=== PATIENT | male | born 1950 | race Caucasian/White ===

== ENCOUNTER 2022-03-17 13:17 | Outpatient (CLI) | payer MEDICARE, BC, SELFPAY ==
[2022-03-17 14:15] LABS: Anion Gap 10 mmol/L (8-16); Blood Urea Nitrogen 23 mg/dL (9-20); Carbon Dioxide 27 mmol/L (22-30); Chloride 102 mmol/L (98-107); Estimated Glomerular Filt Rate > 60; Glucose 142 mg/dL (65-110); Potassium 4.2 mmol/L (3.4-5.0); Sodium 139 mmol/L (137-145)
== END 2022-03-17 13:18 | disposition home or self-care (01) ==
LOC: ANHSURGERY 13:22
PROVIDERS: Anesthesiology; PCP Internal Medicine; Visit Provider Urology
DX: I10 Essential (primary) hypertension (principal); Z01.818 Encounter for other preprocedural examination
CPT/HCPCS: 36415; 80048

== ENCOUNTER 2022-03-24 00:35 | Day surgery (SDC) | payer MEDICARE, BC, SELFPAY ==
--- NOTE | 2022-03-16 15:19 | PC.NURSE ---
Report to the Outpatient Waiting Room, entrance under the green pavilion located off [facility], at time _0630 on date _03/24/22 . OR Time: __0830 . Time changes happen often and if your time is changed the preop area will call you the afternoon before. - You and your visitor will be asked to self-screen and do not enter if you have any COVID symptoms. - Only one visitor and NO children visitors are allowed at this time. - The patient visitor is requested to leave or wait in car when not with patient due to restrictions. - A mask is required within the hospital. Patients may have clear liquids (water, carbonated beverages, clear teas, apple juice) until 3 hours prior to surgery with a maximum of 20 ounces. - No food from midnight until time of surgery - Infants may have breast milk until 4 hours before surgery, formula 6 hours prior to surgery. - Children will be allowed to drink immediately following surgery. If applicable, please bring a bottle or sippy cup to assist with drinking. Juice, water, soda, and popsicles are readily available. For infants on formula, please bring formula the day of surgery. Pacifiers are allowed. Take the following medications with a SIP of water the morning of surgery: _DILTIAZEM,NADOLOL, Medications to discontinue per physician __CATRACHO SOTO 2 DAYS PRE OP ___PT STATES ALL VITAMINS AND SUPPLEMENTS 7 DAYS PRE OP PER DR PHOEN[place] Date to take last dose__03/21/22__CATRACHO AND ALL VITAMINS/SUPP 03/16/22 Please no make-up, nail bengali, hairspray, perfume, deodorant, or body powder the day of surgery. No jewelry (including any body piercings) or valuables the day of surgery, leave them at home. Please take a shower or bath the night before, or the morning of, surgery with an antibacterial soap. Wear comfortable, loose fitting clothing. Children are encouraged to wear pajamas. - Jewelry must be removed prior to entering the operating room. Rings and piercings that are not removed may be cut off. - The hospital will not accept responsibility for valuables. - Please leave all valuables, including medications, at home the day of surgery. If you are going home after surgery, a licensed [place] driver must drive you home. - NO public transportation without another adult. - We recommend that an adult stay with you for 24 hours following discharge. - We also recommend that you do not drive, make important decision, drink alcoholic beverages, or take any drugs that were not prescribed by your health care provider for at least 24 hours after your discharge time. For Pediatric surgeries, we recommend two adults accompany the child home (only one inside the building at this time). Follow any additional instructions given to you from your surgeon. If you or anyone in your household have experienced Covid symptoms in the past week, please notify your surgeon or the nurse liaison at the phone number below for possible testing. Telephone instructions given to _PATIENT and asked if any additional questions and then verbalized understanding. Patient advised to call surgeon office or pre surgery nurse liaison [phone] if any additional questions.
[2022-03-16 15:42] VITALS: BMI 34.8
[2022-03-24] VITALS (9 sets, daily range): BP systolic 122–169; BP diastolic 73–115; PULSE 56–81; RESP 12–18; TEMP 36.8–38; O2SAT 95–99
[2022-03-24] MEDS: LACTATED RINGERS 1,000 ML 30 ML IV CONT ×2 (07:15→09:56)
--- NOTE | 2022-03-24 07:22 | WPDHPUPDATE1 ---
History and Physical Update Update Date/Time: 03/24/22 07:22 History and Physical has been reviewed, including an updated exam of the patient. There are NO changes in the patient's condition. Risks, benefits, and alternatives have been discussed and questions answered. Patient agrees to proceed with procedure. Proceed with right hydrocele and orchiopexy
--- NOTE | 2022-03-24 07:44 | WPDANESEPPF ---
Anes - Initial Pre Proc Eval Procedure: Operation Date: 03/24/22 08:30 Proposed Procedures p Right Hydrocelectomy with Orchiopexy - John Camacho MD Date/Time: 03/24/22 07:44 Surgeon: John Camacho MD Pre Op Diagnosis: Right Hydrocele Patient Data Age: 71 Gender: M Height: 1.8 m Weight: 115.5 kg Last Vital Signs Temp 36.8 C 03/24/22 07:30 Pulse 76 03/24/22 07:30 Resp 18 03/24/22 07:30 BP 169/115 H 03/24/22 07:30 Pulse Ox 98 03/24/22 07:30 O2 Del Method Room Air 03/24/22 07:30 Allergies Allergy/AdvReac Type Severity Reaction Status Date / Time lisinopril Allergy Intermediate increased Verified 03/24/22 07:25 heart rate Penicillins Allergy Mild Hives Verified 03/24/22 07:25 telmisartan Allergy Unknown heart Verified 03/24/22 07:25 flutter frequency Home Medications Medication Instructions Recorded Confirmed Type rivaroxaban 20 mg tablet (Xarelto) 20 mg PO DAILY 08/01/19 03/24/22 History triamterene 37.5 1 cap PO DAILY #90 caps 09/19/21 03/16/22 Rx mg-hydrochlorothiazide 25 mg capsule nadolol 80 mg tablet (Corgard) 80 mg PO DAILY #90 tabs 12/29/21 03/24/22 Rx valsartan 320 mg tablet 320 mg PO DAILY #90 tabs 02/10/22 03/16/22 Rx allopurinol 300 mg tablet 300 mg PO DAILY #90 tabs 02/11/22 03/16/22 Rx diltiazem HCl 300 mg 300 mg PO DAILY #90 caps 03/04/22 03/24/22 Rx capsule,extended release 24 hr glucosamine sulf dipot 1 cap PO EVERY OTHER DAY 03/16/22 03/16/22 History chlr,msm,chond 550 mg-C 30 mg-rayshawn 1 mg capsule (Glucosamine Chondroitin) multivitamin 1 tablet PO EVERY OTHER DAY 03/16/22 03/24/22 History Patient hx anesthesia problems: none Family hx anesthesia problems: other (mother slow to awaken) Results Review: All pre-operative results and documents have been reviewed as part of the pre-operative evaluation. [facility] Past Medical History Medical History Arthritis Essential (primary) hypertension Obesity Paroxysmal atrial fibrillation Pure hypercholesterolemia Family History Family History Sibling Hypertension Patient's sister is in good health Mother , pancreatic cancer Family history of malignant neoplasm of breast in first degree relative Family history of colonic diverticulitis Father Family history of congestive heart failure, Onset Age: 76 Patient's father is Social History Social History Smoking status: Never smoker Second hand tobacco smoke exposure: No Alcohol intake: current Living arrangements: alone Spiritual care concerns: No Anes - Eval Final PreProcedure Day of Procedure 03/24/22 07:44 Patient weight: obese Heart: regular rate and rhythm Lungs: clear to auscultation Airway: Mallampati scale class II Neurological: alert and oriented Last oral intake: >/= 8 hours ASA classification: III Emergent: no Anesthetic plan: proceed Anesthesia type and monitoring: general LMA and standard monitoring Results Review: All pre-operative results and documents have been reviewed as part of the pre-operative evaluation. Informed Consent: The patient's anesthetic plan and its attendant risks and benefits were discussed with the patient/family/POA. Questions were solicited and answers provided to the satisfaction of the patient/family/POA.
[2022-03-24] MEDS: ceFAZolin 2 GM/D5W 50 ML 2 GM/50 ML BAG IVPB (08:16)
[2022-03-24] MEDS: NEOMYCIN/POLYMYXIN/BACITRACIN OINTMENT 15 GM TUBE 1 APPLIC TOPICAL (09:44)
[2022-03-24] MEDS: LIDOCAINE HCL 1% PF 30 ML VIAL INFILTRATE (09:45)
--- NOTE | 2022-03-24 09:50 | W.PM.PROC2 ---
Procedure Note - Detailed Date of Procedure 03/24/22 Pre-op Diagnosis Right Hydrocele Post-op Diagnosis Same Procedure Performed Scrotal exploration with right hydrocelectomy, right orchiopexy Surgeon John Camacho MD Anesthesia General Description of Procedure Patient was taken to the operating room correctly identified. Once anesthesia was obtained was prepped and draped usual sterile fashion. Incision was made over the right hemiscrotum. The was carried down through the tunica layers. Patient has an extremely large hydrocele which was then brought out into the operative field. We opened the hydrocele. We evacuated 450 cc of brownish fluid. The hydrocele sac itself was extremely thick and fibrous in nature. We were able to dissect this down and excised the excess tissue. We then fulgurated oversewed the edges using 3-0 chromic in a running fashion. Quarter-inch Nelly drain was then placed in the right hemiscrotum through a separate stab incision and secured using 3-0 chromic. Testicle was placed in appropriate location an orchiopexy was performed by using 3-0 Ethibond and securing it on the medial, lateral, and inferior aspects. Tunica was closed using 3-0 chromic. Skin was closed using 3-0 chromic in a running fashion. We anesthetized the skin and the drain site using 1% lidocaine. All lap count needle count sponge counts were correct. Patient was taken recovery stable condition. He will remove the [place] drain and a couple days of there is minimal drainage. Follow-up in 3-4 weeks time. Estimated Blood Loss 25 Drains Yes Packing No Pathology Yes Complications No immediate complications Condition Stable Disposition PACU
== END 2022-03-24 12:05 | disposition home or self-care (01) ==
PROVIDERS: PCP Internal Medicine; Visit Provider Urology
PROC: (CPT 55040; principal; 2022-03-24 08:30)
DX: N43.3 Hydrocele, unspecified (principal); I10 Essential (primary) hypertension; I48.0 Paroxysmal atrial fibrillation; E78.00 Pure hypercholesterolemia, unspecified; E66.9 Obesity, unspecified; Z68.35 Body mass index [BMI] 35.0-35.9, adult; Z79.01 Long term (current) use of anticoagulants
CPT/HCPCS: 55040; 54640; 88302; A9270; J0690; J1100; J2405; J2704; J3010; J7120

== ENCOUNTER 2022-03-26 07:48 | Inpatient (IN) | payer MEDICARE, BC, SELFPAY ==
[2022-03-26] VITALS (38 sets, daily range): BP systolic 148–187; BP diastolic 83–119; PULSE 38–94; RESP 13–31; TEMP 36.5–36.9; O2SAT 92–99; BMI 36.1
--- NOTE | ~2022-03-26 | CT_ITS ---
EXAMINATION: CTA brain carotid DATE: 03/26/2022 09:28 INDICATION: Cerebrovascular accident. TECHNIQUE: Computed tomographic angiography (CTA) of the head was performed with 100 mL Omnipaque-350 intravenous contrast. CTA of the neck was performed with intravenous contrast. Automated exposure co ntrol and iterative reconstruction technique were employed. The dose-length product was 1287.18 mGy-c m. Maximum intensity projection and volume rendered 3D-reconstructions were created by the [employer] on a separate workstation. COMPARISON: Head CT 03/26/2022 FINDINGS: HEAD CTA: There is no intracranial hemorrhage, acute infarction, or abnormal intracranial mass lesion . The ventricles are normal in size. There is mucosal thickening in the paranasal sinuses. There is t hickening and sclerosis of the feliciano of many of the right-sided paranasal sinuses, consistent with ch ronic sinusitis. The mastoid air cells are normal. Left vertebral artery is dominant. There is no sig nificant stenosis of basilar artery or the posterior cerebral arteries. The posterior communicating a rteries are normal. There is no significant stenosis of the intracranial internal carotid artery or a nterior cerebral arteries. There is thrombus in a left M2 middle cerebral artery branch with severe s tenosis. Anterior communicating artery is normal. There is no aneurysm. NECK CTA: There are no pathologically enlarged lymph nodes. There is no significant stenosis of the v ertebral arteries. There is plaque in the proximal internal carotid arteries. There is 0% stenosis of the proximal right internal carotid artery relative to normal distal artery lumen diameter (NASCET c riteria). There is 0% stenosis of the proximal left internal carotid artery relative to normal distal artery lumen diameter. There is severe cervical spondylosis. IMPRESSION: 1. 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 No parenchymal findings of infarct. 2. 0% stenosis of the proximal internal carotid arteries relative to normal distal artery lumen diame ters (NASCET criteria). 3. Chronic sinusitis. Reviewed, dictated and finalized at location A. IMPRESSION: 1. 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 No parenchymal findings of infarct. 2. 0% stenosis of the proximal internal carotid arteries relative to normal dis jackie artery lumen diameters (NASCET criteria). 3. Chronic sinusitis.
--- NOTE | ~2022-03-26 | MR_ITS ---
EXAMINATION: MR brain/brain stem wo con DATE: 03/28/2022 14:49 INDICATION: thrombus TECHNIQUE: Magnetic resonance imaging (MRI) of the brain and brainstem was performed without intraven ous contrast. Sequences included sagittal and axial T1-weighted SE, axial diffusion-weighted FS EPI A SSET, axial T2*-weighted GRE, axial T2-weighted FLAIR Propeller, and axial T2-weighted Propeller. Pos tcontrast axial and coronal T1-weighted SE was obtained. Apparent diffusion coefficient (ADC) maps we re created. COMPARISON: CT brain and CTA brain carotid 03/26/2022. FINDINGS: Focal areas of T2/FLAIR hyperintensity with corresponding diffusion restriction in the left posterior insular cortex and at two sites in the left parietal cortex. Flow voids are preserved. No MRI eviden ce of hemorrhage or extra-axial collection. No suspicious foci of susceptibility to suggest prior int raparenchymal hemorrhage. Mild scattered white matter hyperintensities likely representing chronic wh ite matter change. No evidence of advanced or lobar predominant parenchymal volume loss. Mucosal thic kening in the right frontal, ethmoid, and maxillary sinuses, with an air-fluid level in the right max illary sinus. The orbits and globes are within normal limits. IMPRESSION: 1. 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 2. Right paranasal sinus findings may reflect acute on chronic sinusitis in the appropriate clinical context. Results reported telephonically to Dr. Lake by Dr. Powell at 6:08 PM on 03/28/2022. Reviewed, dictated and finalized at location K. IMPRESSION: 1. 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 2. Right paranasal sinus findings may reflect acute on chronic sinusitis in the appropriate clinical context. Results reported telephonically to Dr. Lake by Dr. Powell at 6:08 PM on .
--- NOTE | ~2022-03-26 | CT_ITS ---
EXAMINATION: CT brain wo con DATE: 03/26/2022 08:16 INDICATION: Dysarthria. Confusion. TECHNIQUE: Computed tomography (CT) of the head was performed without intravenous contrast. The mA wa s adjusted according to patient size. Iterative reconstruction technique was employed. The dose-lengt h product was 605.33 mGy-cm. COMPARISON: None FINDINGS: There is no intracranial hemorrhage, acute infarction, or abnormal intracranial mass lesion . The ventricles are normal in size. The orbits are normal. There is mucosal thickening in the parana miko sinuses. There is thickening and sclerosis of the feliciano of the right sphenoid, right ethmoid, rig ht frontal, and right maxillary sinuses, consistent with chronic sinusitis. The mastoid air cells are normal. IMPRESSION: 1. Normal brain. 2. Chronic sinusitis. Reviewed, dictated and finalized at location A.
--- NOTE | ~2022-03-26 | XR_ITS ---
EXAMINATION: XR chest 2V DATE: 03/26/2022 09:31 INDICATION: Transient alteration of awareness TECHNIQUE: frontal and lateral views of the chest were obtained. COMPARISON: Chest radiograph dated 12/02/2012 FINDINGS: The lungs remain clear with no focal airspace opacities, pulmonary edema, pleural effusion or pneumot horax. The cardiomediastinal silhouette is normal. There are bridging osteophytes at multiple levels in the spine, consistent with diffuse idiopathic skeletal hyperostosis (DISH). IMPRESSION: 1. No acute cardiopulmonary disease. Reviewed, dictated and finalized at location B.
--- NOTE | 2022-03-26 07:52 | ECG_ITS ---
Measurements Intervals Saline Rate: 78 P: NV: 0 QRS: 46 QRSD: 80 T: 31 QT: 364 QTc: 415 Interpretive Statements ATRIAL FIBRILLATION ABNORMAL RHYTHM ECG NO PREVIOUS ECG AVAILABLE FOR COMPARISON Electronically Signed On 03-26-2022 14:43:47 CDT by Ijeoma Moon M.D.
[2022-03-26 07:57] LABS: Glucose Point of Care 121 mg/dl (65-105)
--- NOTE | 2022-03-26 08:00 | ED.GENADULT ---
HPI - General Adult General Chief complaint: Neuro Symptoms/Deficit Stated complaint: neuro Time Seen by Provider: 03/26/22 07:51 History of Present Illness HPI narrative: 71-year-old male with history of paroxysmal atrial fibrillation presenting to the emergency department for evaluation after having some confusion and word finding difficulty this morning. Patient's brother states that the patient did have a hydrocele drained on Wednesday. He states when the patient went to bed last night approximately 9 PM his speech was normal. Brother noticed that when the patient woke up this morning the patient was having difficulty with word finding and seemed confused. Patient denies any prior history of CVA. Patient does have prior history of paroxysmal atrial fibrillation and is on Xarelto. Related Data Home Medications Medication Instructions Recorded Confirmed rivaroxaban 20 mg tablet (Xarelto) 20 mg PO DAILY 08/01/19 03/24/22 glucosamine sulf dipot 1 cap PO EVERY OTHER DAY 03/16/22 03/16/22 chlr,msm,chond 550 mg-C 30 mg-rayshawn 1 mg capsule (Glucosamine Chondroitin) multivitamin 1 tablet PO EVERY OTHER DAY 03/16/22 03/24/22 Allergies Allergy/AdvReac Type Severity Reaction Status Date / Time lisinopril Allergy Intermediate increased Verified 03/26/22 08:33 heart rate Penicillins Allergy Mild Hives Verified 03/26/22 08:33 telmisartan Allergy Unknown heart Verified 03/26/22 08:33 flutter frequency Review of Systems Review of Systems: CONSTITUTIONAL: Denies fever, chills, or sweats. EYES: Denies visual changes, redness, or discharge. ENT: Denies rhinorrhea, congestion, sore throat, or otalgia. CARDIOVASCULAR: Denies chest pain, palpitations, or edema. RESPIRATORY: Denies cough or dyspnea. GASTROINTESTINAL: Denies abdominal pain, nausea, vomiting, or diarrhea. GENITOURINARY: Denies dysuria or hematuria. SKIN: Denies rash or itching. MUSCULOSKELETAL: Denies back pain, joint pain, or myalgia. NEUROLOGIC: Increased confusion and word finding difficulty PMFSH Past Medical History Medical History (Updated 03/26/22 @ 15:54 by Gokul Garcia MD) Arthritis Essential (primary) hypertension Gout, unspecified Hydrocele Drained this past Wednesday. Obesity Paroxysmal atrial fibrillation Pure hypercholesterolemia Surgical History Surgical History [place] teeth extracted Family History Family History Sibling Hypertension Patient's sister is in good health Mother , pancreatic cancer Family history of malignant neoplasm of breast in first degree relative Family history of colonic diverticulitis Father Family history of congestive heart failure, Onset Age: 76 Patient's father is Social History Social History (Updated 03/26/22 @ 14:04 by Pauly Miranda NP) Social History: The patient is single and has no children. He is retired from the [employer]. His brother is the power claims attorney. The patient is a lifelong nonsmoker. He does not use any alcohol marijuana or illicit drugs. Code status is full code Smoking status: Never smoker Second hand tobacco smoke exposure: No Alcohol intake: current Spiritual care concerns: No Exam Narrative: APPEARANCE: Well appearing, no pain, no distress, well-nourished. HEAD: normocephalic, atraumatic. EYES: PERRLA/EOMI, conjunctivae clear. NOSE: Normal no drainage EARS:TMS clear with good light reflex. THROAT: Pharynx clear, no exudate. NECK: Supple. No adenopathy, no masses. RESPIRATORY: Airway patent, respirations nonlabored. Clear to auscultation bilaterally, no rales, rhonchi, wheezing. CARDIOVASCULAR: Regular rate and rhythm without murmurs rubs or gallops. ABDOMINAL: Soft, nontender, nondistended, normal bowel sounds MUSCULOSKELETAL: Moves all extremities. Strength/ROM intact, No edema, No calf ten
[2022-03-26 08:06] LABS: Basophils Absolute Auto 0.1 K/mm3 (0.0-0.1); Basophils Percent Auto 0.4 % (0.2-1.2); Eosinophils Absolute Auto 0.1 K/mm3 (0-0.3); Eosinophils Percent Auto 0.3 % (0-4.4); Hematocrit 44.5 % (42.0-52.0); Hemoglobin 14.2 g/dL (14.0-18.0); Lymphocytes Percent Auto 20.8 % (18.3-44.2); Mean Corpuscular HGB Conc 31.9 g/dl (32-36); Mean Corpuscular Hemoglobin 29.7 pg (26-34); Mean Corpuscular Volume 93.1 fl (80-100); Monocytes Absolute Auto 1.9 K/mm3 (0.1-0.6); Monocytes Percent Auto 10.1 % (2.6-8.5); Neutrophils Percent Auto 67.4 % (45.5-73.1); Platelet Count Result 343 k/mm3 (150-375); Red Blood Count 4.78 M/mm3 (4.6-6.20); Red Cell Distribution Width 13.7 % (11.5-14.5); White Blood Count 19.2 K/mm3 (4.5-10.0)
[2022-03-26 08:15] LABS: Alanine Aminotransferase 20 U/L (6-50); Albumin Level 4.3 g/dL (3.5-5.1); Alkaline Phosphatase 60 U/L (38-126); Anion Gap 10 mmol/L (8-16); Aspartate Amino Transferase 24 U/L (17-59); Bilirubin,Total 0.8 mg/dL (0.2-1.3); Blood Urea Nitrogen 30 mg/dL (9-20); Calcium 9.3 mg/dL (8.4-10.2); Carbon Dioxide 28 mmol/L (22-30); Chloride 104 mmol/L (98-107); Estimated Glomerular Filt Rate 54; Glucose 130 mg/dL (65-110); Potassium 4.2 mmol/L (3.4-5.0); Sodium 142 mmol/L (137-145)
[2022-03-26 08:22] LABS: INR 1.2; Partial Thromboplastin Time 28.2 SECONDS (22.3-36.8)
[2022-03-26 09:17] LABS: Influenza A QL RT-PCR Negative (Negative); Influenza B QL RT-PCR Negative (Negative); SARS-CoV-2 RNA PCR Negative
[2022-03-26] MEDS: HEPARIN SODIUM 5,000 UNITS/ML VIAL 7500 UNITS IV PUSH ×2 (10:39→20:20)
[2022-03-26] MEDS: HEPARIN SOD/D5W 100 UNITS/ML 25,000 UNITS/250 ML BAG 15 UNITS IV CONT (10:48)
--- NOTE | 2022-03-26 10:50 | PC.NURSE ---
pt states he is able to think clearer. family remains at bedside. plan of care reviewed.
--- NOTE | 2022-03-26 13:07 | PM.IMHP ---
H&P: HPI History of Present Illness Date/Time: 03/26/22 13:07 Chief Complaint: Neuro symptoms Narrative: This is a 71-year-old male patient who has a history of atrial fibrillation and has been on long-term Xarelto. However the patient had a procedure performed this past Wednesday and had to be off of his Xarelto for appear to time. The patient stated that he has been off of his Xarelto since last Wednesday. The patient had a hydrocele drain on Wednesday. He has had no previous history of having any PEs or DVTs. He has had no history of having a CVA or TIA. Patient stated when he went to bed last night around 9:00 p.m. he was at his normal state of mind. His speech was normal. His brother noticed that the patient's speech was abnormal this morning when he woke up. The patient was having difficulty with word-finding and seemed confused. The patient stated that he was supposed to start his Xarelto today. Head and neck CTA was read as the following 1. 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 No parenchymal findings of infarct. 2. 0% stenosis of the proximal internal carotid arteries relative to normal distal artery lumen diameters (NASCET criteria). 3. Chronic sinusitis. The patient was started on heparin drip. There is no evidence of any infarction on the CTA. The ED provider discussed the case with [facility], Dr. Dela Cruz and the patient was accepted for transfer. Is recommended that the patient be placed on heparin drip. The case was discussed with my collaborative this morning and agreed to admit the patient here awaiting a bed [facility] Chest x-ray shows no acute cardiopulmonary disease. His white count is noted to be 19.2. The patient was not negative for influenza a and B as well as COVID. Urinalysis is pending. The patient was initially admitted to observation status and then changed to inpatient status date of service of 03/26/2022. Review of Systems Review of Systems: see hpi All systems reviewed & are unremarkable except as noted in HPI and below Constitutional: Constitutional: Reports as per HPI and Reports no additional constitutional complaints Eyes: Eyes: Reports as per HPI and Reports no additional eye complaints ENT: Reports system reviewed and no additional complaints, except as documented and Reports Normal hearing present Cardiovascular: Cardiovascular: Reports no additional cardiovascular complaints Respiratory: Respiratory: Reports no additional respiratory complaints and Reports no additional respiratory complaints Gastrointestinal: Gastrointestinal: Reports as per HPI and Reports no additional gastrointestinal complaints Musculoskeletal: Musculoskeletal: Reports no additional musculoskeletal complaints Integumentary/Breasts: Skin/Breast: Reports system reviewed and no additional complaints, except as docu and Reports as per HPI Neurologic: Reports system reviewed and no additional complaints, except as documented, Reports as per HPI and Reports Normal hearing present Psychiatric: Psychiatric: Reports no additional psychiatric complaints and Reports as per HPI Endocrine: Endocrine: Reports no additional endocrine complaints Hematologic/Lymphatic: Hematologic/Lymphatic: Reports no additional hematologic/lymphatic complaints Allergic/Immunologic: Allergic/Immunologic: Reports no additional allergic/immunologic complaints [facility] Past Medical History Medical History (Updated 03/26/22 @ 14:11 by Pauly Miranda NP) Arthritis Essential (primary) hypertension Gout, unspecified Hydrocele Drained this past Wednesday. Obesity Paroxysmal atrial fibrillation Pure hypercholesterolemia Surgical History Surgical History [place] teeth extracted Family History Family History Sibling Hypertension Patient's sister is in good health Mother , pancreati
[2022-03-26 14:14] LABS: Appearance Urine Clear (Clear); Bilirubin Urine Negative (Negative); Blood Urine Trace-intact (Negative); Color Urine Yellow (Yellow); Glucose Urine UA Negative (Negative); Ketones Urine Negative (Negative); Leukocyte Esterase Ur Negative LEU/UL (Negative); Nitrate Urine Negative (Negative); Protein Urine Negative (Negative); Urobilinogen Urine 0.2 mg/dL (<2.0); pH Urine 6.5 (5.0-9.0)
[2022-03-26 14:21] LABS: Add Urine Microscopic? YES; Mucus Urine Rare /lpf; RBC Urine 0-2 /hpf (0-2); Squamous Epithelial Cell Urine Rare /hpf (Few); WBC Urine 0-3 /hpf
--- NOTE | 2022-03-26 15:49 | PC.NURSE ---
pt moved to floor bed for comfort. continue waiting imu bed placement.
--- NOTE | 2022-03-26 17:52 | PC.NURSE ---
ptt drawn per protocol and sent to lab
--- NOTE | 2022-03-26 18:59 | ADMGEN ---
This patient, Kenji Hernandez, was admitted to IMU Room 207-01 @ 1800. Patient oriented to hospital policies and general routines including ID bracelet, bed and alarms, visiting hours, pain management, procedures, bathroom and other care routines, personal items, smoking policy, room service/diet, and visiting hours. Information on how to activate the Rapid Response Team has been discussed. Patient are encouraged to report perceived risks to care and to ask questions if they do not understand what they are told or what they should do.
[2022-03-26 19:35] LABS: Partial Thromboplastin Time 51.7 SECONDS (22.3-36.8)
[2022-03-27] VITALS (17 sets, daily range): BP systolic 128–164; BP diastolic 73–98; PULSE 65–94; RESP 16–20; TEMP 36.4–36.6; O2SAT 93–100
--- NOTE | 2022-03-27 | ECHO_ITS ---
Patient Info Name: Kenji Hernandez Age: 71 years : 1950 Gender: Male Ht: 71 in Wt: 260 lbs BSA: 2.47 m2 HR: 67 bpm BP: 153 / 95 mmHg Heart Rhythm: Atrial Fibrillation Technical Quality: Fair Exam Date: 03/27/2022 7:57 AM Exam Location: [facility] Pul[facility] Patient Status: Inpatient Admit Date: 03/26/2022 Staff Ordering Physician: Pauly Miranda NP Cyber Security Administrator: Nolvia Orantes RDCS Attending Provider: Maame Lake DO Referring Physician: Ruben RICKS; Exam Type: CA echo dop color flow w con Study Info Indications - Thrombus of the M2 middle cerebral artery branch Complete two-dimensional, color flow and Doppler transthoracic echocardiogram is performed with contrast to opacify the left ventricle and to improve the deliniation of the left ventricle endocardial borders. Contrast/Agitated Saline Contrast/Ag. Saline: Definity Amount: 3.00 ml Administered By: Nolvia Orantes RDCS Existing IV Access: Yes IV Access Condition: patent with no signs of infiltration Summary 1. Left ventricular chamber dimension is normal. 2. Left ventricular systolic function is normal, estimated at 50-55%. 3. Moderate biatrial dilation. 4. Trivial amount of mitral valve regurgitation. 5. Atrial fibrillation. Left Ventricle Left ventricular chamber dimension is normal. Left ventricular systolic function is normal, estimated at 50-55%. The left ventricular diastolic function is indeterminate. Right Ventricle Right ventricular chamber dimension is normal. Left Atria Left atrial chamber dimension is moderately enlarged. Right Atria Right atrial chamber dimension is moderately enlarged. Aortic Valve The aortic valve is normal. Pulmonic Valve The pulmonic valve is not well visualized. Mitral Valve The mitral valve has normal leaflets. There is trace mitral valve regurgitation. Tricuspid Valve The tricuspid valve leaflets are normal. Pericardium/Pleural The pericardium appears normal. Aorta The aortic root size at the sinus of Valsalva is normal. Left Ventricular Outflow Tract Name Value Normal LVOT 2D LVOT Diameter 2.01 cm LVOT Doppler LVOT Peak Gradient 3 mmHg LVOT Mean Gradient 2 mmHg LVOT VTI 16.55 cm LVOT VTI/AV VTI Ratio 0.62 LVOT Stroke Volume 52.36 ml LVOT CO 3.37 l/min LVOT CI 1.36 L/min/m2 Pulmonic Valve Name Value Normal RVOT Doppler RVOT Peak Gradient 1 mmHg PV Doppler PV Peak Gradient 3 mmHg Mitral Valve
[2022-03-27] MEDS: HEPARIN SOD/D5W 100 UNITS/ML 25,000 UNITS/250 ML BAG 19 UNITS IV CONT (02:27)
[2022-03-27 02:56] LABS: Basophils Absolute Auto 0.1 K/mm3 (0.0-0.1); Basophils Percent Auto 0.4 % (0.2-1.2); Eosinophils Percent Auto 0.3 % (0-4.4); Hematocrit 38.3 % (42.0-52.0); Hemoglobin 12.4 g/dL (14.0-18.0); Immature Granulocyte Absolute 0.12 K/mm3 (0.00-0.031); Immature Granulocyte Percent A 0.9 % (0-0.5); Lymphocytes Percent Auto 25.6 % (18.3-44.2); Mean Corpuscular HGB Conc 32.4 g/dl (32-36); Mean Corpuscular Hemoglobin 29.9 pg (26-34); Mean Corpuscular Volume 92.3 fl (80-100); Mean Platelet Volume 9.2 fl (7.4-10.4); Monocytes Absolute Auto 1.4 K/mm3 (0.1-0.6); Monocytes Percent Auto 10.1 % (2.6-8.5); Neutrophils Absolute Auto 8.8 K/mm3 (1.3-6.7); Neutrophils Percent Auto 62.7 % (45.5-73.1); Platelet Count Result 257 k/mm3 (150-375); Red Blood Count 4.15 M/mm3 (4.6-6.20); Red Cell Distribution Width 13.6 % (11.5-14.5)
[2022-03-27 03:06] LABS: Alanine Aminotransferase 17 U/L (6-50); Albumin Level 3.7 g/dL (3.5-5.1); Alkaline Phosphatase 57 U/L (38-126); Anion Gap 6 mmol/L (8-16); Aspartate Amino Transferase 22 U/L (17-59); Bilirubin,Total 0.8 mg/dL (0.2-1.3); Blood Urea Nitrogen 23 mg/dL (9-20); Calcium 8.5 mg/dL (8.4-10.2); Carbon Dioxide 28 mmol/L (22-30); Chloride 105 mmol/L (98-107); Estimated CRCL calculation 77 ml/min; Estimated Glomerular Filt Rate > 60; Glucose 103 mg/dL (65-110); Potassium 3.7 mmol/L (3.4-5.0); Sodium 139 mmol/L (137-145)
[2022-03-27 03:22] LABS: Partial Thromboplastin Time 176.8 SECONDS (22.3-36.8)
--- NOTE | 2022-03-27 05:08 | PC.NURSE ---
MONITORING THE CHARTING AND MEDICATION DISPENSING FOR THIS PATIENT DONE BY RACHEL CABRALES RN-LICENSE PENDING AND I AGREE WITH THE CHARTING.
[2022-03-27] MEDS: HEPARIN SOD/D5W 100 UNITS/ML 25,000 UNITS/250 ML BAG 16 UNITS IV CONT ×2 (05:18→19:57)
--- NOTE | 2022-03-27 08:09 | PM.IMPN ---
Progress Note: A&P Assessment and Plan (1) Cerebral arterial thrombosis: Code(s): I66.9 - Occlusion and stenosis of unspecified cerebral artery Status: Acute Assessment and Plan: Continue heparin drip, await bed at [facility] Appreciate neurology consultation Echo within normal limits MRI pending (2) Paroxysmal atrial fibrillation: Code(s): I48.0 - Paroxysmal atrial fibrillation Status: Acute Assessment and Plan: Stable (3) Gout, unspecified: Code(s): M10.9 - Gout, unspecified Status: Acute Assessment and Plan: Continue allopurinol (4) Essential (primary) hypertension: Code(s): I10 - Essential (primary) hypertension Status: Acute Assessment and Plan: Continue home medications Plan DVT prophylaxis with heparin GI prophylaxis with PPI Code status full code Subjective Date/time seen: 03/27/22 08:09 Interval history: No overnight events noted. No chest pain or shortness of breath. No nausea, vomiting or diarrhea. No fevers or chills. Review of Systems Review of Systems: 12 point review of systems was assessed and was negative except as noted in the HPI Exam Narrative: General: No acute distress, alert and oriented per baseline HEENT: Atraumatic, normocephalic, mucous membranes moist CV: Regular rate and rhythm, S1, S2 Lungs: Clear to auscultation bilaterally, no rales or crackles noted, no wheezes, good air entry Abdomen: Soft, nontender, nondistended Extremities: Normal to inspection Skin: No rashes noted, no lesions or wounds seen Psych: Euthymic, normal affect Neuro: Cranial nerves 2-12 grossly intact, strength +5/5 upper and lower extremities bilaterally Objective Data Vital Signs Vital Signs: Vital Signs - 24 hr 03/26/22 08:33 03/26/22 08:15 03/26/22 08:30 Temperature Pulse Rate 70 80 67 Respiratory Rate 16 15 15 Blood Pressure 151/89 H Pulse Oximetry 95 96 96 Oxygen Delivery 03/26/22 08:35 03/26/22 08:45 03/26/22 08:46 Temperature Pulse Rate 70 65 78 Respiratory Rate 19 15 15 Blood Pressure 151/89 H 150/119 H Pulse Oximetry 99 93 Oxygen Delivery 03/26/22 09:00 03/26/22 09:01 03/26/22 09:31 Temperature Pulse Rate 63 77 84 Respiratory Rate 15 16 15 Blood Pressure 153/95 H Pulse Oximetry 94 95 92 Oxygen Delivery 03/26/22 09:45 03/26/22 10:00 03/26/22 11:23 Temperature Pulse Rate 84 81 79 Respiratory Rate 15 16 16 Blood Pressure Pulse Oximetry 94 95 94 Oxygen Delivery 03/26/22 11:30 03/26/22 11:45 03/26/22 12:00 Temperature Pulse Rate 78 75 73 Respiratory Rate 15 13 17 Blood Pressure Pulse Oximetry 94 94 94 Oxygen Delivery 03/26/22 12:15 03/26/22 12:31 03/26/22 12:45 Temperature Pulse Rate 74 94 72 Respiratory Rate 16 21 H 20 Blood Pressure Pulse Oximetry 94 97 Oxygen Delivery 03/26/22 13:00 03/26/22 13:15 03/26/22 14:23 Temperature Pulse Rate 80 79 73 Respiratory Rate 19 18 Blood Pressure Pulse Oximetry 95 Oxygen Delivery 03/26/22 14:30 03/26/22 14:59 03/26/22 15:00 Temperature Pulse Rate 69 71 79 Respiratory Rate Blood Pressure Pulse Oximetry Oxygen Delivery 03/26/22 15:34 03/26/22 15:36 03/26/22 12:30 Temperature Pulse Rate 83 76 Respiratory Rate Blood Pressure 165/99 H Pulse Oximetry 96 97 96 Oxygen Delivery 03/26/22 16:15 03/26/22 15:37 03/26/22 17:40 Temperature Pulse Rate 77 71 68 Respiratory Rate 16 16 Blood Pressure 148/98 H Pulse Oximetry 96 96 96 Oxygen Delivery 03/26/22 18:08 03/26/22 20:00 03/26/22 23:59 Temperature 98.5 F 97.7 F 97.7 F Pulse Rate 82 74 76 Respiratory Rate 18 16 16 Blood Pressure 171/96 H 158/83 H 148/83 H Pulse Oximetry 98 97 96 Oxygen Delivery 03/26/22 20:00 03/26/22 20:00 03/26/22 22:00 Temperature Pulse Rate 90 79 Respiratory Rate Blood Pressure Pulse Oximetry Oxygen Del
[2022-03-27] MEDS: PERFLUTREN LIPID MICROSPHERES 1.5 ML VIAL DILUTED TO 10 ML TOTAL VOLUME IV PUSH (08:28)
--- NOTE | 2022-03-27 08:28 | IVDEFINITY ---
Prior to administration of IV Definity the patient was educated on the risks and benefits of the imaging enhancing agent including potential adverse side effects. The patient verbalized understanding. Allergies were verified. No exclusion criteria were identified and at least one of the following inclusion criteria were met: 1) physician request, 2) patient technically difficult to image (per the [place] [employer] guidelines of two or more segments not discernable within the apical view), or 3) questionable left ventricular function. ?
[2022-03-27] MEDS: TRIAMTERENE 37.5 MG/HCTZ 25 MG (MAXZIDE) TABLET 1 TAB PO (09:56)
[2022-03-27] MEDS: nadoloL 20 MG TABLET 80 MG PO (09:56)
[2022-03-27] MEDS: VALSARTAN 160 MG TABLET 320 MG PO (09:58)
[2022-03-27] MEDS: MULTIVITAMINS THERAPEUTIC TAB (*BKC) 1 TABLET PO (09:59)
[2022-03-27 10:44] LABS: Partial Thromboplastin Time 75.4 SECONDS (22.3-36.8)
--- NOTE | 2022-03-27 12:01 | WPDNEURCNPN ---
Assessment and Plan Assessment and plan (1) Stroke or transient ischemic attack (TIA) diagnosed during current admission: Status: Acute (2) Cerebral arterial thrombosis: Code(s): I66.9 - Occlusion and stenosis of unspecified cerebral artery Status: Acute (3) Paroxysmal atrial fibrillation: Code(s): I48.0 - Paroxysmal atrial fibrillation Status: Acute (4) Essential (primary) hypertension: Code(s): I10 - Essential (primary) hypertension Status: Acute (5) Hyperlipidemia: Code(s): E78.5 - Hyperlipidemia, unspecified Status: Acute Plan Mr. Hernandez is a 71 year old male with a history of HTN, HLD, prediabetes, atrial fibrillation who presented with transient aphasia. Concern for stroke vs TIA. He was found to have thrombus with severe left M2 stenosis. Awaiting placement to [facility] for further intervention. - MRI brain w/o contrast - Surface echo complete, results pending - Check A1c and LDL, will likely need statin - Heparin and blood pressure parameters as recommended by [facility] stroke team Consult date: 03/27/22 Time Seen: 12:01 Reason for consult: Stroke HPI: Kenji Hernandez is a 71 year old male with a history of prediabetes, HTN, HLD, and atrial fibrillation who presented on 03/26 due to concerns for aphasia. Per brother (who brought patient to ED yesterday), patient's last known well was 9pm on 03/25 (before going to bed). He did not receive tPA due to concerns that he was outside of window of treatment as LKW was the night before. the morning of 03/26, patient was having trouble using the coffee pot and then had word salad and difficulty comprehending/following commands. He has aphasia for a couple of hours, which then self-resolved. He had a CT head which was negative for acute process, but CTA showed left MCA thrombus with severe stenosis. Case was discussed with [facility] stroke team by ED, and patient was accepted for transfer for possible intervention. He was also started on heparin as per [facility] stroke team recommendation. Patient usually takes Xarelto, but had been off of it recently due to recent surgical procedure. This morning patient feels completely normal. He denies any focal weakness, numbness, vision changes, or residual speech issues. His last A1c was 6.1 and LDL 103 in December 2021. Review of Systems Constitutional: Constitutional: Reports no additional constitutional complaints Eyes: Eyes: Reports no additional eye complaints ENT: Reports system reviewed and no additional complaints, except as documented Cardiovascular: Cardiovascular: Reports no additional cardiovascular complaints Respiratory: Respiratory: Reports no additional respiratory complaints Gastrointestinal: Gastrointestinal: Reports no additional gastrointestinal complaints Genitourinary: Genitourinary: Reports no additional male genitourinary complaints Musculoskeletal: Musculoskeletal: Reports arthralgias Integumentary/Breasts: Skin/Breast: Reports system reviewed and no additional complaints, except as docu Neurologic: Reports as per HPI and Reports Abnormal speech present Psychiatric: Psychiatric: Reports no additional psychiatric complaints PMFSH Past Medical History Medical History Arthritis Essential (primary) hypertension Gout, unspecified Hydrocele Drained this past Wednesday. Obesity Paroxysmal atrial fibrillation Pure hypercholesterolemia Surgical History Surgical History [place] teeth extracted Family History Family History Sibling Hypertension Patient's sister is in good health Mother , pancreatic cancer Family history of malignant neoplasm of breast in first degree relative Family history of colonic diverticulitis Father Family history of congestive heart failure, Onset Age: 76 Patient's fa
--- NOTE | 2022-03-27 15:11 | WPDURCON ---
Assessment and Plan Assessment and plan (1) Stroke or transient ischemic attack (TIA) diagnosed during current admission: Status: Acute (2) Cerebral arterial thrombosis: Code(s): I66.9 - Occlusion and stenosis of unspecified cerebral artery Status: Acute (3) Hydrocele: Code(s): N43.3 - Hydrocele, unspecified Status: Acute Assessment and Plan: Keep scrotal incision clean and dry with daily showers using soap and water only, no ointments and use a dry dressing to cover the incision. Elevate and apply ice. Edema and bruising will take weeks to resolve. F/U as planned in the office after discharge. Urology Consult Note HPI Date Seen: 03/27/22 Time Seen: 10:00 Requesting Physician: Maame Lake DO Primary Care Provider: Magdaleno Mitchell DO Consult Narrative Reason for consult: S/P hydrocelectomy Narrative: Kenji Hernandez is a 71 year old male who presents to the ER for sudden onset of confusion and slurred speech yesterday after he woke up. He has has been off of Xarelto for his hydrocelectomy for one week. He had a scrotal exploration with right hydrocelectomy, right orchiopexy on 03/24/[address] Camacho. He states his scrotal drain fell out a few days ago. He denies any problems with drainage or pain post operatively. He has been elevating his scrotum and using ice at home since his procedure. Unfortunately, a CT of the head was done d/t his acute onset of slurred speech and confusion and a thrombus in the left M2 middle cerebral artery branch with severe stenosis was found. He is awaiting transfer to [facility] for further treatment while on Heparin. Review of Systems Cardiovascular: Cardiovascular: Denies chest pain Respiratory: Respiratory: Reports no additional respiratory complaints Genitourinary: Genitourinary: Denies dysuria, Denies flank pain, Denies urinary frequency, Denies urinary hesitancy and Denies urinary urgency [facility] Past Medical History Medical History Arthritis Essential (primary) hypertension Gout, unspecified Hydrocele Drained this past Wednesday. Obesity Paroxysmal atrial fibrillation Pure hypercholesterolemia Surgical History Surgical History [place] teeth extracted Family History Family History Sibling Hypertension Patient's sister is in good health Mother , pancreatic cancer Family history of malignant neoplasm of breast in first degree relative Family history of colonic diverticulitis Father Family history of congestive heart failure, Onset Age: 76 Patient's father is Social History Social History Social History: The patient is single and has no children. He is retired from the [employer]. His brother is the power plastics heat welder. The patient is a lifelong nonsmoker. He does not use any alcohol marijuana or illicit drugs. Code status is full code Smoking status: Never smoker Second hand tobacco smoke exposure: No Alcohol intake: current Drinks per week: 0 Substance use: never Substance use type: does not use Spiritual care concerns: No Meds Home Medications and Allergies Home Medications Medication Instructions Recorded Confirmed Type rivaroxaban 20 mg tablet (Xarelto) 20 mg PO DAILY 08/01/19 03/26/22 History nadolol 80 mg tablet (Corgard) 80 mg PO DAILY #90 tabs 12/29/21 03/26/22 Rx valsartan 320 mg tablet 320 mg PO DAILY #90 tabs 02/10/22 03/26/22 Rx allopurinol 300 mg tablet 300 mg PO DAILY #90 tabs 02/11/22 03/26/22 Rx diltiazem HCl 300 mg 300 mg PO DAILY #90 caps 03/04/22 03/26/22 Rx capsule,extended release 24 hr glucosamine sulf dipot 1 cap PO EVERY OTHER DAY 03/16/22 03/26/22 History chlr,msm,chond 550 mg-C 30 mg-rayshawn 1 mg capsule (G
[2022-03-27 17:51] LABS: Partial Thromboplastin Time 74.4 SECONDS (22.3-36.8)
[2022-03-28] VITALS (12 sets, daily range): BP systolic 129–153; BP diastolic 63–98; PULSE 57–96; RESP 16; TEMP 36.2–36.9; O2SAT 93–98
[2022-03-28 05:57] LABS: Partial Thromboplastin Time 91.4 SECONDS (22.3-36.8)
--- NOTE | 2022-03-28 09:02 | PM.IMPN ---
Progress Note: A&P Assessment and Plan (1) Cerebral arterial thrombosis: Code(s): I66.9 - Occlusion and stenosis of unspecified cerebral artery Status: Acute Assessment and Plan: Continue heparin drip, await bed at [facility] Appreciate neurology consultation Echo within normal limits MRI pending (2) Paroxysmal atrial fibrillation: Code(s): I48.0 - Paroxysmal atrial fibrillation Status: Acute Assessment and Plan: Stable (3) Gout, unspecified: Code(s): M10.9 - Gout, unspecified Status: Acute Assessment and Plan: Continue allopurinol (4) Essential (primary) hypertension: Code(s): I10 - Essential (primary) hypertension Status: Acute Assessment and Plan: Continue home medications Plan DVT prophylaxis with heparin GI prophylaxis with PPI Code status full code Subjective Date/time seen: 03/28/22 09:02 Interval history: No overnight events noted. No chest pain or shortness of breath. No nausea, vomiting or diarrhea. No fevers or chills. Review of Systems Review of Systems: 12 point review of systems was assessed and was negative except as noted in the HPI Exam Narrative: General: No acute distress, alert and oriented per baseline HEENT: Atraumatic, normocephalic, mucous membranes moist CV: Regular rate and rhythm, S1, S2 Lungs: Clear to auscultation bilaterally, no rales or crackles noted, no wheezes, good air entry Abdomen: Soft, nontender, nondistended Extremities: Normal to inspection Skin: No rashes noted, no lesions or wounds seen Psych: Euthymic, normal affect Neuro: Cranial nerves 2-12 grossly intact, strength +5/5 upper and lower extremities bilaterally Objective Data Vital Signs Vital Signs: Vital Signs - 24 hr 03/27/22 09:56 03/27/22 09:44 03/27/22 12:00 Temperature 97.8 F Pulse Rate 82 70 Respiratory Rate 20 Blood Pressure 142/96 H Pulse Oximetry 93 95 Oxygen Delivery Room Air 03/27/22 10:00 03/27/22 12:30 03/27/22 14:00 Temperature Pulse Rate 65 79 76 Respiratory Rate Blood Pressure Pulse Oximetry Oxygen Delivery 03/27/22 16:00 03/27/22 16:00 03/27/22 20:00 Temperature 97.8 F 97.6 F Pulse Rate 71 73 76 Respiratory Rate 18 18 Blood Pressure 154/97 H 128/73 Pulse Oximetry 96 95 Oxygen Delivery 03/27/22 18:00 03/27/22 20:00 03/27/22 22:00 Temperature Pulse Rate 76 71 75 Respiratory Rate Blood Pressure Pulse Oximetry Oxygen Delivery 03/27/22 23:56 03/28/22 00:00 03/28/22 02:00 Temperature 97.9 F Pulse Rate 70 68 76 Respiratory Rate 20 Blood Pressure 157/98 H Pulse Oximetry 100 Oxygen Delivery 03/28/22 04:00 03/28/22 04:00 03/28/22 06:00 Temperature 97.6 F Pulse Rate 65 68 65 Respiratory Rate 16 Blood Pressure 149/87 H Pulse Oximetry 97 Oxygen Delivery 03/28/22 08:00 Temperature 97.2 F L Pulse Rate 74 Respiratory Rate 16 Blood Pressure 153/98 H Pulse Oximetry 98 Oxygen Delivery Intake/Output Intake/Output: Intake & Output 03/25/22 03/26/22 03/27/22 03/28/22 23:59 23:59 23:59 23:59 Intake Total 1530 Output Total 900 400 Balance 630 -400 Meds/Results Medications: Active Medications Generic Name Dose Route Start Last Admin Trade Name Freq PRN Reason Stop Dose Admin Allopurinol 300 mg 03/27/22 09:00 03/27/22 09:59 Allopurinol 300 Mg Tablet PO Not Given DAILY [facility] Diltiazem HCl 300 mg 03/27/22 09:00 03/27/22 09:58 Diltiazem Hcl Cd 300 Mg Cap PO 300 mg DAILY JENA Administration Heparin Sodium (Porcine) 7,500 units 03/26/22 10:05 03/26/22 20:20 Heparin Sodium 5,000 Units/Ml Vial IV PUSH 7,500 units PRN PRN Administration aPTT less than 55 seconds Heparin Sodium (Porcine) 3,500 units 03/26/22 10:05 Heparin Sodium 5,000 Units/Ml Vial IV PUSH PRN PRN aPTT 55 - 70 seconds Heparin Sodium/Dextrose 25,000 units in 250
[2022-03-28] MEDS: VALSARTAN 160 MG TABLET 320 MG PO (09:06)
[2022-03-28] MEDS: TRIAMTERENE 37.5 MG/HCTZ 25 MG (MAXZIDE) TABLET 1 TAB PO (09:07)
[2022-03-28] MEDS: allopurinoL 300 MG TABLET PO (09:07)
[2022-03-28] MEDS: PANTOPRAZOLE SODIUM IV 40 MG VIAL IV PUSH (09:08)
--- NOTE | 2022-03-28 09:58 | WPDUROPN2 ---
Progress Note: A&P Assessment and Plan (1) Hydrocele: Code(s): N43.3 - Hydrocele, unspecified Status: Acute Assessment and Plan: Doing well overall from the standpoint. Has edema in the scrotum. Would recommend elevation and ice pack to the scrotum. Has follow-up appointment in 2-3 weeks time. Subjective Subjective Date/Time Seen: 03/28/22 09:58 Principal diagnosis: Right hydrocele with postop TIA Interval history: Doing better at this time. Appears to be back to his baseline. Denies any significant scrotal pain. Review of Systems Review of Systems: All systems reviewed & are unremarkable except as noted in HPI and below Exam Const: General: cooperative and comfortable Resp: Effort & Inspection: normal respiratory effort Cardio: Rate: regular rate Rhythm: regular rhythm : Scrotum: edematous Objective Data Vital Signs Vital Signs: Vital Signs - 24 hr 03/27/22 12:00 03/27/22 10:00 03/27/22 12:30 Temperature 36.6 C Pulse Rate 70 65 79 Respiratory Rate 20 Blood Pressure 142/96 H Pulse Oximetry 95 03/27/22 14:00 03/27/22 16:00 03/27/22 16:00 Temperature 36.6 C Pulse Rate 76 71 73 Respiratory Rate 18 Blood Pressure 154/97 H Pulse Oximetry 96 03/27/22 20:00 03/27/22 18:00 03/27/22 20:00 Temperature 36.4 C Pulse Rate 76 76 71 Respiratory Rate 18 Blood Pressure 128/73 Pulse Oximetry 95 03/27/22 22:00 03/27/22 23:56 03/28/22 00:00 Temperature 36.6 C Pulse Rate 75 70 68 Respiratory Rate 20 Blood Pressure 157/98 H Pulse Oximetry 100 03/28/22 02:00 03/28/22 04:00 03/28/22 04:00 Temperature 36.4 C Pulse Rate 76 65 68 Respiratory Rate 16 Blood Pressure 149/87 H Pulse Oximetry 97 03/28/22 06:00 03/28/22 08:00 Temperature 36.2 C L Pulse Rate 65 74 Respiratory Rate 16 Blood Pressure 153/98 H Pulse Oximetry 98 Intake/Output Intake/Output: Intake & Output 03/25/22 03/26/22 03/27/22 03/28/22 23:59 23:59 23:59 23:59 Intake Total 1530 Output Total 900 400 Balance 630 -400 Meds/Results Medications: Active Medications Generic Name Dose Route Start Last Admin Trade Name Freq PRN Reason Stop Dose Admin Allopurinol 300 mg 03/27/22 09:00 03/28/22 09:07 Allopurinol 300 Mg Tablet PO 300 mg DAILY JENA Administration Diltiazem HCl 300 mg 03/27/22 09:00 03/28/22 09:07 Diltiazem Hcl Cd 300 Mg Cap PO 300 mg DAILY JENA Administration Heparin Sodium (Porcine) 7,500 units 03/26/22 10:05 03/26/22 20:20 Heparin Sodium 5,000 Units/Ml Vial IV PUSH 7,500 units PRN PRN Administration aPTT less than 55 seconds Heparin Sodium (Porcine) 3,500 units 03/26/22 10:05 Heparin Sodium 5,000 Units/Ml Vial IV PUSH PRN PRN aPTT 55 - 70 seconds Heparin Sodium/Dextrose 25,000 units in 250 mls @ 16 mls/hr 03/26/22 10:20 03/27/22 19:57 Heparin Sodium/D5w 100 Units/Ml IV CONT 1,600 units/hr .[id number] JENA 16 mls/hr Administration Protocol 1,600 UNITS/HR Multivitamins Therapeutic 1 tablet 03/27/22 09:00 03/27/22 09:59 Multivitamins Therapeutic Tab (*Bkc) PO 1 tablet Q48H JENA Administration Nadolol 80 mg 03/27/22 09:00 03/27/22 09:56 Nadolol 20 Mg Tablet PO 80 mg DAILY JENA Administration Pantoprazole Sodium 40 mg 03/28/22 09:00 03/28/22 09:08 Pantoprazole Sodium Iv 40 Mg Vial IV PUSH 40 mg QAM JENA Administration Triamterene/Hydrochlorothiazide 1 tab 03/27/22 09:00 03/28/22 09:07 Triamterene 37.5 Mg/Hctz 25 Mg (Maxzide) Tablet PO 1 tab DAILY JENA Administration Valsartan 320 mg 03/27/22 09:00 03/28/22 09:06 Valsartan 160 Mg Tablet PO 04/26/22 08:59 320 mg DAILY JENA Administration Radiology Results: ITS Impressions Head CT 03/26/22 08:19 IMPRESSION: 1. Normal brain. 2. Chronic sinusitis. Head/Neck CTA 03/26/22 09:30 IMPRESSION: 1. Thrombus in a left M2 middle cerebral art
--- NOTE | 2022-03-28 12:29 | WPDNEUROPN ---
Progress Note: A&P Assessment and Plan (1) Stroke or transient ischemic attack (TIA) diagnosed during current admission: Status: Acute (2) Paroxysmal atrial fibrillation: Code(s): I48.0 - Paroxysmal atrial fibrillation Status: Acute (3) Hyperlipidemia: Code(s): E78.5 - Hyperlipidemia, unspecified Status: Acute (4) Essential (primary) hypertension: Code(s): I10 - Essential (primary) hypertension Status: Acute Plan Mr. Hernandez is a 71 year old male with a history of HTN, HLD, prediabetes, atrial fibrillation who presented with transient aphasia. Concern for stroke vs TIA. He was found to have thrombus with severe left M2 stenosis. Awaiting placement to [facility] for possible further intervention. He remains asymptomatic. - MRI brain w/o contrast - Check A1c and LDL, will likely need statin - Heparin and blood pressure parameters as recommended by [facility] stroke team Subjective Date/time seen: 03/28/22 12:29 Interval history: Kenji Hrenandez is a 71 year old male with a history of prediabetes, HTN, HLD, and atrial fibrillation who presented on 03/26 due to concerns for aphasia. Per brother (who brought patient to ED yesterday), patient's last known well was 9pm on 03/25 (before going to bed). He did not receive tPA due to concerns that he was outside of window of treatment as [facility]KW was the night before. the morning of 03/26, patient was having trouble using the coffee pot and then had word salad and difficulty comprehending/following commands. He has aphasia for a couple of hours, which then self-resolved. He had a CT head which was negative for acute process, but CTA showed left MCA thrombus with severe stenosis. Case was discussed with [facility] stroke team by ED, and patient was accepted for transfer for possible intervention. He was also started on heparin as per [facility] stroke team recommendation. Patient usually takes Xarelto, but had been off of it recently due to recent surgical procedure. This morning patient feels completely normal. He denies any focal weakness, numbness, vision changes, or residual speech issues. His last A1c was 6.1 and LDL 103 in December 2021. Interval history: Echo done yesterday, no evidence of clot. Patient denies any new symptoms or concerns. Review of Systems Constitutional: Constitutional: Reports no additional constitutional complaints Eyes: Eyes: Reports no additional eye complaints ENT: Reports system reviewed and no additional complaints, except as documented Cardiovascular: Cardiovascular: Reports no additional cardiovascular complaints Respiratory: Respiratory: Reports no additional respiratory complaints Gastrointestinal: Gastrointestinal: Reports no additional gastrointestinal complaints Genitourinary: Comments: hydrocele Musculoskeletal: Musculoskeletal: Reports no additional musculoskeletal complaints Integumentary/Breasts: Skin/Breast: Reports system reviewed and no additional complaints, except as docu Neurologic: Reports as per HPI Psychiatric: Psychiatric: Reports no additional psychiatric complaints Exam Const: General: comfortable and no acute distress HENMT: Mouth: Yes moist mucous membranes Eyes: General: appearance normal, both eyes and all related structures Pupils: Equal, round and reactive pupils present EOM: EOMs intact bilaterally Resp: Effort & Inspection: normal respiratory effort Auscultation: clear to auscultation bilaterally Cardio: Rate: regular rate GI: GI Palp: Yes Soft to palpation Auscultation: normal bowel sounds Skin: General skin exam: normal color Neuro: Other: AOx3, Pupils equal and reactive bilaterally, EOMI, face symmetric, facial sensation intact, tongue protrudes midline, palate midline. Shoulder shrug normal. Strength 5/5 throughout. Sensation intact throughout. Reflexes 2+ in biceps, patellar, and AJ bilaterally, FNF normal bilaterally. Language comprehension and fluency intact. Gait deferred. Extrem:
[2022-03-28] MEDS: HEPARIN SOD/D5W 100 UNITS/ML 25,000 UNITS/250 ML BAG 16 UNITS IV CONT (12:34)
[2022-03-28] MEDS: nadoloL 20 MG TABLET 80 MG PO (12:36)
[2022-03-29] VITALS (15 sets, daily range): BP systolic 125–140; BP diastolic 64–90; PULSE 38–86; RESP 16–20; TEMP 36.4–37.3; O2SAT 94–99
[2022-03-29] MEDS: HEPARIN SOD/D5W 100 UNITS/ML 25,000 UNITS/250 ML BAG 16 UNITS IV CONT (05:23)
--- NOTE | 2022-03-29 08:58 | PM.IMPN ---
Progress Note: A&P Assessment and Plan (1) Cerebral arterial thrombosis: Code(s): I66.9 - Occlusion and stenosis of unspecified cerebral artery Status: Acute Assessment and Plan: Continue heparin drip, await bed at [facility] Appreciate neurology consultation Echo within normal limits MRI showed multiple small infarcts in the left MCA territory affecting the left posterior insular and left parietal cortices likely embolic from the thrombus noted in the left MCA, M2 branch, CTA head showed thrombus and left M2 middle cerebral artery branch with severe stenosis, these findings were not noted on the MRI, discussed with radiology, not sure the stenosis is severe or obstructing blood flow, will discuss with neurosurgery (2) Paroxysmal atrial fibrillation: Code(s): I48.0 - Paroxysmal atrial fibrillation Status: Acute Assessment and Plan: Rate controlled, continues to be in persistent atrial fibrillation History of 2 cardioversions, 1 lasted about a year and 1 lasted a couple days, has currently decided against ablation but may reconsider in the future Was previously on Xarelto chronically, this was held for about a week for urological procedure (3) Gout, unspecified: Code(s): M10.9 - Gout, unspecified Status: Acute Assessment and Plan: Continue allopurinol (4) Essential (primary) hypertension: Code(s): I10 - Essential (primary) hypertension Status: Acute Assessment and Plan: Continue home medications (5) Hydrocele: Code(s): N43.3 - Hydrocele, unspecified Status: Acute Assessment and Plan: Appreciate urology consultation, continue ice and elevation status post hydrocele procedure Plan DVT prophylaxis with heparin GI prophylaxis with PPI Code status full code Subjective Date/time seen: 03/29/22 08:58 Interval history: No overnight events noted. No chest pain or shortness of breath. No nausea, vomiting or diarrhea. No fevers or chills. Patient complaining of some constipation and requesting a stool softener. Review of Systems Review of Systems: 12 point review of systems was assessed and was negative except as noted in the HPI Exam Narrative: General: No acute distress, alert and oriented per baseline HEENT: Atraumatic, normocephalic, mucous membranes moist CV: Regular rate and rhythm, S1, S2 Lungs: Clear to auscultation bilaterally, no rales or crackles noted, no wheezes, good air entry Abdomen: Soft, nontender, nondistended Extremities: Normal to inspection Skin: No rashes noted, no lesions or wounds seen Psych: Euthymic, normal affect Neuro: Cranial nerves 2-12 grossly intact, strength +5/5 upper and lower extremities bilaterally Objective Data Vital Signs Vital Signs: Vital Signs - 24 hr 03/28/22 12:00 03/28/22 16:00 03/28/22 10:00 Temperature 97.4 F L 98.5 F Pulse Rate 74 78 70 Respiratory Rate 16 16 Blood Pressure 142/86 H 129/63 Pulse Oximetry 97 96 Oxygen Delivery 03/28/22 12:00 03/28/22 14:00 03/28/22 16:00 Temperature Pulse Rate 62 62 57 L Respiratory Rate Blood Pressure Pulse Oximetry Oxygen Delivery 03/28/22 12:00 03/28/22 16:00 03/28/22 18:00 Temperature Pulse Rate 63 Respiratory Rate Blood Pressure Pulse Oximetry Oxygen Delivery Room Air Room Air 03/28/22 20:00 03/29/22 00:00 03/29/22 04:00 Temperature 97.7 F 97.9 F 97.6 F Pulse Rate 96 86 69 Respiratory Rate 16 18 16 Blood Pressure 134/87 125/76 137/90 Pulse Oximetry 93 96 98 Oxygen Delivery 03/28/22 20:00 03/28/22 22:00 03/29/22 00:00 Temperature Pulse Rate 83 64 65 Respiratory Rate Blood Pressure Pulse Oximetry Oxygen Delivery 03/29/22 02:00 03/29/22 04:00 03/29/22 06:00 Temperature Pulse Rate 69 65 67 Respiratory Rate Blood Pressure Pulse Oximetry Oxygen Delivery 03/28/22 20:00 03/29/22 00:00 03/29/22 04:00 Temperature
[2022-03-29] MEDS: VALSARTAN 160 MG TABLET 320 MG PO (09:25)
[2022-03-29] MEDS: nadoloL 20 MG TABLET 80 MG PO (09:25)
[2022-03-29] MEDS: allopurinoL 300 MG TABLET PO (09:26)
[2022-03-29] MEDS: MULTIVITAMINS THERAPEUTIC TAB (*BKC) 1 TABLET PO (09:26)
[2022-03-29] MEDS: TRIAMTERENE 37.5 MG/HCTZ 25 MG (MAXZIDE) TABLET 1 TAB PO (09:26)
[2022-03-29] MEDS: PANTOPRAZOLE SODIUM IV 40 MG VIAL IV PUSH (09:27)
[2022-03-29 12:05] LABS: Basophils Absolute Auto 0.1 K/mm3 (0.0-0.1); Basophils Percent Auto 0.7 % (0.2-1.2); Eosinophils Absolute Auto 0.2 K/mm3 (0-0.3); Eosinophils Percent Auto 1.5 % (0-4.4); Hematocrit 41.8 % (42.0-52.0); Immature Granulocyte Absolute 0.18 K/mm3 (0.00-0.031); Immature Granulocyte Percent A 1.3 % (0-0.5); Lymphocytes Absolute Auto 3.01 K/mm3 (0.9-3.2); Lymphocytes Percent Auto 21.6 % (18.3-44.2); Mean Corpuscular HGB Conc 33.5 g/dl (32-36); Mean Corpuscular Hemoglobin 29.7 pg (26-34); Mean Corpuscular Volume 88.6 fl (80-100); Mean Platelet Volume 9.1 fl (7.4-10.4); Monocytes Percent Auto 7.1 % (2.6-8.5); Neutrophils Absolute Auto 9.4 K/mm3 (1.3-6.7); Neutrophils Percent Auto 67.8 % (45.5-73.1); Platelet Count Result 303 k/mm3 (150-375); Red Blood Count 4.72 M/mm3 (4.6-6.20); Red Cell Distribution Width 13.4 % (11.5-14.5); White Blood Count 13.9 K/mm3 (4.5-10.0)
[2022-03-29 12:21] LABS: Alanine Aminotransferase 18 U/L (6-50); Albumin Level 4.2 g/dL (3.5-5.1); Alkaline Phosphatase 67 U/L (38-126); Anion Gap 11 mmol/L (8-16); Aspartate Amino Transferase 22 U/L (17-59); Blood Urea Nitrogen 22 mg/dL (9-20); Carbon Dioxide 23 mmol/L (22-30); Chloride 101 mmol/L (98-107); Estimated CRCL calculation 84 ml/min; Estimated Glomerular Filt Rate > 60; Glucose 116 mg/dL (65-110); Potassium 4.1 mmol/L (3.4-5.0); Sodium 135 mmol/L (137-145)
[2022-03-29 12:30] LABS: Partial Thromboplastin Time 123.9 SECONDS (22.3-36.8)
[2022-03-29 19:35] LABS: Partial Thromboplastin Time 154.1 SECONDS (22.3-36.8)
[2022-03-29 20:28] LABS: Glucose Point of Care 124 mg/dl (65-105)
[2022-03-30] VITALS (10 sets, daily range): BP systolic 115–126; BP diastolic 74; PULSE 48–76; RESP 16–24; TEMP 36–36.8; O2SAT 96–100
[2022-03-30] MEDS: HEPARIN SOD/D5W 100 UNITS/ML 25,000 UNITS/250 ML BAG 11 UNITS IV CONT (00:08)
[2022-03-30 04:00] LABS: Basophils Absolute Auto 0.1 K/mm3 (0.0-0.1); Basophils Percent Auto 0.5 % (0.2-1.2); Eosinophils Absolute Auto 0.3 K/mm3 (0-0.3); Eosinophils Percent Auto 2.4 % (0-4.4); Hematocrit 41.5 % (42.0-52.0); Hemoglobin 13.4 g/dL (14.0-18.0); Immature Granulocyte Percent A 1.5 % (0-0.5); Lymphocytes Absolute Auto 3.76 K/mm3 (0.9-3.2); Lymphocytes Percent Auto 28.5 % (18.3-44.2); Mean Corpuscular HGB Conc 32.3 g/dl (32-36); Mean Corpuscular Hemoglobin 29.7 pg (26-34); Mean Platelet Volume 8.9 fl (7.4-10.4); Monocytes Absolute Auto 1.2 K/mm3 (0.1-0.6); Monocytes Percent Auto 8.7 % (2.6-8.5); Neutrophils Absolute Auto 7.7 K/mm3 (1.3-6.7); Neutrophils Percent Auto 58.4 % (45.5-73.1); Platelet Count Result 254 k/mm3 (150-375); Red Blood Count 4.51 M/mm3 (4.6-6.20); Red Cell Distribution Width 13.5 % (11.5-14.5); White Blood Count 13.2 K/mm3 (4.5-10.0)
[2022-03-30 04:13] LABS: Alanine Aminotransferase 17 U/L (6-50); Albumin Level 3.8 g/dL (3.5-5.1); Alkaline Phosphatase 61 U/L (38-126); Anion Gap 7 mmol/L (8-16); Aspartate Amino Transferase 24 U/L (17-59); Bilirubin,Total 0.7 mg/dL (0.2-1.3); Blood Urea Nitrogen 29 mg/dL (9-20); Calcium 8.8 mg/dL (8.4-10.2); Carbon Dioxide 29 mmol/L (22-30); Chloride 99 mmol/L (98-107); Estimated CRCL calculation 48 ml/min; Estimated Glomerular Filt Rate 43; Glucose 115 mg/dL (65-110); Potassium 3.9 mmol/L (3.4-5.0); Sodium 135 mmol/L (137-145)
[2022-03-30 04:14] LABS: Partial Thromboplastin Time 150.9 SECONDS (22.3-36.8)
--- NOTE | 2022-03-30 08:05 | PM.DS ---
DS: Admitting Diagnosis Discharge Date March 30, 2022 Admitting Diagnosis CVA DS: Discharge Diagnosis Discharge Diagnosis (1) Cerebral arterial thrombosis: Code(s): I66.9 - Occlusion and stenosis of unspecified cerebral artery Status: Acute Assessment and Plan: Echo within normal limits MRI showed multiple small infarcts in the left MCA territory affecting the left posterior insular and left parietal cortices likely embolic from the thrombus noted in the left MCA, M2 branch, CTA head showed thrombus and left M2 middle cerebral artery branch with severe stenosis, these findings were not noted on the MRI, discussed with radiology, not sure the stenosis is severe or obstructing blood flow, will discuss with neurosurgery 03/29: Appreciate neurosurgery consultation, no neuro intervention recommended, will discuss medical management with Neurology 03/30: Neurology recommends high-intensity statin and restarting Xarelto and follow-up outpatient with the [facility] stroke team (2) Paroxysmal atrial fibrillation: Code(s): I48.0 - Paroxysmal atrial fibrillation Status: Acute Assessment and Plan: Rate controlled, continues to be in persistent atrial fibrillation History of 2 cardioversions, 1 lasted about a year and 1 lasted a couple days, has currently decided against ablation but may reconsider in the future Was previously on Xarelto chronically, this was held for about a week for urological procedure (3) Gout, unspecified: Code(s): M10.9 - Gout, unspecified Status: Acute Assessment and Plan: Continue allopurinol (4) Essential (primary) hypertension: Code(s): I10 - Essential (primary) hypertension Status: Acute Assessment and Plan: Continue home medications (5) Hydrocele: Code(s): N43.3 - Hydrocele, unspecified Status: Acute Assessment and Plan: Appreciate urology consultation, continue ice and elevation status post hydrocele procedure Plan DVT prophylaxis with heparin GI prophylaxis with PPI Code status full code DS: Summary Hospital Course Hospital Course: 71-year-old male patient who has a history of atrial fibrillation and has been on long-term Xarelto.? However the patient had a procedure performed this past Wednesday and had to be off of his Xarelto for appear to time.? The patient stated that he has been off of his Xarelto since last Wednesday.? The patient had a hydrocele drain on Wednesday.? He has had no previous history of having any PEs or DVTs.? He has had no history of having a CVA or TIA.? Patient stated when he went to bed last night around 9:00 p.m. he was at his normal state of mind.? His speech was normal.? His brother noticed that the patient's speech was abnormal this morning when he woke up.? The patient was having difficulty with word-finding and seemed confused.? The patient stated that he was supposed to start his Xarelto today.? Head and neck CTA was read as the following 1. 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 No parenchymal findings of infarct. 2. 0% stenosis of the proximal internal carotid arteries relative to normal distal artery lumen diameters (NASCET criteria). 3. Chronic sinusitis.? The patient was started on heparin drip. Neurology was consulted and recommended an MRI and an echo. Echo was essentially normal. MRI showed 2 small infarct likely embolic from the thrombus in the MCA. All of patient's symptoms resolved and he remained stable. Neurosurgery was consulted and recommended medical management and outpatient follow-up with the Stroke team. Neurology recommended restarting the Xarelto in adding high-intensity statin. The patient was discharged in good condition with close outpatient follow-up by Neurology, Neurosurgery and the stroke team. Time Spent with Patient Time attestation: Total time spent providing and/or coordinating discharge services: Exam Narrative: General: No ac
[2022-03-30] MEDS: ATORVASTATIN 40 MG TABLET 80 MG PO (08:40)
[2022-03-30] MEDS: RIVAROXABAN 20 MG TABLET PO (08:40)
[2022-03-30] MEDS: SODIUM CHLORIDE 0.9% IV 1,000 ML 999 ML IV CONT (08:41)
[2022-03-30] MEDS: nadoloL 20 MG TABLET 80 MG PO (08:42)
[2022-03-30] MEDS: VALSARTAN 160 MG TABLET 320 MG PO (08:43)
[2022-03-30] MEDS: PANTOPRAZOLE SODIUM IV 40 MG VIAL IV PUSH (08:43)
[2022-03-30] MEDS: TRIAMTERENE 37.5 MG/HCTZ 25 MG (MAXZIDE) TABLET 1 TAB PO (08:43)
[2022-03-30] MEDS: allopurinoL 300 MG TABLET PO (08:43)
[2022-03-30] MEDS: polyethylene glycoL 3350 17 GM POWD.PACK PO (08:44)
[2022-03-30 13:43] LABS: Anion Gap 16 mmol/L (8-16); Blood Urea Nitrogen 28 mg/dL (9-20); Calcium 8.3 mg/dL (8.4-10.2); Carbon Dioxide 25 mmol/L (22-30); Chloride 96 mmol/L (98-107); Estimated CRCL calculation 59 ml/min; Estimated Glomerular Filt Rate 54; Glucose 111 mg/dL (65-110); Potassium 4.2 mmol/L (3.4-5.0); Sodium 137 mmol/L (137-145)
== END 2022-03-30 14:33 | disposition home or self-care (01) | DRG 68 ==
LOC: ANHED 08:16 → ANHIMU 15:54
PROVIDERS: Nurse Practitioner; Physician Assistant; Admitting Provider Student in an Organized Health Care Education/Training Program; Emergency Provider Emergency Medicine; PCP Internal Medicine; Visit Provider Student in an Organized Health Care Education/Training Program
DX: I66.02 Occlusion and stenosis of left middle cerebral artery (principal); I48.19 Other persistent atrial fibrillation; K59.00 Constipation, unspecified; J32.9 Chronic sinusitis, unspecified; E78.00 Pure hypercholesterolemia, unspecified; E66.9 Obesity, unspecified; I10 Essential (primary) hypertension; M10.9 Gout, unspecified; M19.90 Unspecified osteoarthritis, unspecified site; R29.701 NIHSS score 1; R73.03 Prediabetes; R47.01 Aphasia; Z88.0 Allergy status to penicillin; Z20.822 Contact with and (suspected) exposure to COVID-19; Z79.01 Long term (current) use of anticoagulants; Z98.890 Other specified postprocedural states
CPT/HCPCS: 36415; 70450; 70496; 70498; 70551; 71046; 80048; 80053; 81001; 82948; 83735; 84443; 85025; 85610; 85730; 87502; 88302; 92523; 93005; 99285; A9270; C8929; C9113; C9803; J0690; J1100; J1644; J2405; J2704; J3010; J7030; J7120; Q9957; Q9967; U0003; U0005

== ENCOUNTER 2022-06-22 11:17 | Emergency (ER) | payer MEDICARE, BC, SELFPAY ==
[2022-06-22 11:26] VITALS: BP 150/75; PULSE 50; RESP 16; TEMP 37.1; O2SAT 99
[2022-06-22 11:29] VITALS: BP 150/75; PULSE 50; RESP 16; TEMP 37.1; O2SAT 99
--- NOTE | 2022-06-22 11:29 | ED.EAR ---
HPI - Ear Problem General Chief complaint: Ear Stated complaint: Left Ear Irritation Time Seen by Provider: 06/22/22 11:29 Source: patient Mode of arrival: ambulatory Limitations: no limitations History of Present Illness HPI Narrative: Kenji is a 71-year-old male patient presenting to the clinic today with complaints of left ear pain x5 days. He reports if feels as though his ear is closing up and is making a popping noise. Reports that he thinks there may be a sore inside is ear Related Data Home Medications Medication Instructions Recorded Confirmed rivaroxaban 20 mg tablet (Xarelto) 20 mg PO DAILY 08/01/19 06/22/22 glucosamine sulf dipot 1 cap PO EVERY OTHER DAY 03/16/22 06/22/22 chlr,msm,chond 550 mg-C 30 mg-rayshawn 1 mg capsule (Glucosamine Chondroitin) multivitamin 1 tablet PO EVERY OTHER DAY 03/16/22 06/22/22 Allergies Allergy/AdvReac Type Severity Reaction Status Date / Time lisinopril Allergy Intermediate increased Verified 06/22/22 11:29 heart rate Penicillins Allergy Mild Hives Verified 06/22/22 11:29 telmisartan Allergy Unknown heart Verified 06/22/22 11:29 flutter frequency Review of Systems Review of Systems: Pertinent positives per HPI. Patient denies any fever, chills, rash, headache, visual changes, dizziness, cough, runny nose, sore throat, shortness of breath, chest pain, palpitations, nausea, vomiting, diarrhea, constipation, abdominal pain, or any urinary issues. [facility] Past Medical History Medical History Acute CVA (cerebrovascular accident) Arthritis Essential (primary) hypertension Gout, unspecified Hydrocele Drained this past Wednesday. Obesity Paroxysmal atrial fibrillation Pure hypercholesterolemia Stroke Surgical History Surgical History [place] teeth extracted Family History Family History Sibling Hypertension Patient's sister is in good health Mother , pancreatic cancer Family history of malignant neoplasm of breast in first degree relative Family history of colonic diverticulitis Father Family history of congestive heart failure, Onset Age: 76 Patient's father is Social History Social History Social History: The patient is single and has no children. He is retired from the [employer]. His brother is the [employer] employment representative. The patient is a lifelong nonsmoker. He does not use any alcohol marijuana or illicit drugs. Code status is full code Smoking status: Never smoker Second hand tobacco smoke exposure: No Alcohol intake: current Drinks per week: 0 Substance use: never Substance use type: does not use Lack of Transportation: No Lack of Food: Never True Current Housing: I Have Housing Concerned About Future Housing: No Difficulty Paying Gas/Electric Bills: No Difficulty Paying for Meds: No Currently Unemployed: No Education: Bachelor's Degree Difficulty w/ Childcare or Family Care: No Spiritual care concerns: No Comments At the time of my signature, I reviewed and agree with the nursing past medical, surgical, social, and family history. There is no relevant family history pertinent to the patient complaint. Exam Narrative: General: Well-developed, well nourished, in no apparent distress Head: Normocephalic, atraumatic Eyes: Pupils equally round and reactive to light bilaterally, EOM intact, sclera and conjunctive clear, no discharge, lids normal Ears: right TMs intact and clear, unable to visualize left TM, left ear canal swollen, right ear canals clear, clear drainage coming from left ear canal, grossly hearing normal. Nose: Nares patent, no discharge, no inflammation, no sinus tenderness. Mouth: Oropharynx withou
== END 2022-06-22 11:58 | disposition home or self-care (01) ==
PROVIDERS: Emergency Provider Nurse Practitioner Family; PCP Internal Medicine
DX: H60.312 Diffuse otitis externa, left ear (principal); Z86.73 Personal history of transient ischemic attack (TIA), and cerebral infarction without residual deficits; M19.90 Unspecified osteoarthritis, unspecified site; I10 Essential (primary) hypertension; M10.9 Gout, unspecified; I48.0 Paroxysmal atrial fibrillation; E66.8 Other obesity; Z68.34 Body mass index [BMI] 34.0-34.9, adult; Z79.01 Long term (current) use of anticoagulants
CPT/HCPCS: 99213; G0463

== ENCOUNTER 2023-04-07 11:01 | Outpatient (CLI) | payer MEDICARE, BC, SELFPAY ==
--- NOTE | ~2023-04-07 | US_ITS ---
EXAMINATION: US retroperitoneal duplex ltd DATE: 04/07/2023 11:31 INDICATION: Resistant hypertension TECHNIQUE: Multiple grayscale, color Doppler, and pulsed Doppler images of the kidneys and renal arlen allyson were obtained. COMPARISON: None. FINDINGS: The right renal artery peak systolic velocity is 149 cm/s in the proximal segment, 59 cm/s in the mid segment, and 78 cm/s in the distal segment. The left renal artery peak systolic velocity is 68 cm/s in the proximal segment, 81 cm/s in the mid segment, and 72 cm/s in the distal segment. 4.7 cm simple appearing exophytic cyst at the lower pole of the right kidney. Bladder is unremarkable. IMPRESSION: 1. No Doppler evidence of renal artery stenosis. Reviewed, dictated and finalized at location A.
== END 2023-04-07 11:02 | disposition home or self-care (01) ==
LOC: ANHIMG 11:01
PROVIDERS: PCP Internal Medicine; Visit Provider Internal Medicine Cardiovascular Disease
DX: I10 Essential (primary) hypertension (principal)
CPT/HCPCS: 93976

== ENCOUNTER 2025-01-25 02:14 | Day surgery (SDC) | payer MEDICARE, BC, SELFPAY ==
[2025-01-10 14:58] VITALS: BMI 33.5
--- NOTE | 2025-01-10 15:10 | PC.NURSE ---
Spoke with patient regarding medication Xarelto. Patient verbalizes understanding that the last dose is to be taken on 01/22/2025 and the Endoscopist will instruct them when to restart after the procedure.
--- OUTSIDE RECORDS SUMMARY | 2025-01-25 02:17 | XMS_ITS | Clinical Summary ---
Author Organization [facility] [place] [address] Address [address] [place] [address] Care Team Providers Care Fig Caprifier Name Role Phone Magdaleno Mitchell MD Primary Care Provider [phone] Scottie Saeed MD Unavailable [phone] Allergies Active Allergy Reactions Criticality Noted Date Comments Penicillins Hives Medium Medications triamterene-hydro CHLOROthiazide (DYAZIDE) 37.5-25 mg per capsule 0 0 03/08/20 14 Active allopurinol (ZYLOPRIM) 300 mg tablet take 1 tablet by oral route every day 0 0 03/08/20 14 Active diltiazem LA (CARDIZEM LA) 300 mg 24 hr tablet take 1 tablet by oral route every day 0 0 03/08/20 14 Active nadolol (CORGARD) 80 mg tablet take 1 Tablet by oral route every day 0 0 01/21/20 13 Active valsartan (DIOVAN) 320 mg tablet Take 1 tablet (320 mg total) by mouth daily 08/17/19 22 Active atorvastatin (LIPITOR) 40 mg tablet Take 2 tablets (80 mg total) by mouth daily 04/26/20 22 Active Xarelto 20 mg tabletIndications :Persistent atrial fibrillation (HCC),correction current use of anticoagulant therapy TAKE 1 TABLET BY MOUTH EVERY DAY 90 tablet 2 01/23/20 25 Active Xarelto 20 mg tabletIndications :Persistent atrial fibrillation (HCC),termite exterminator current use of anticoagulant therapy TAKE 1 TABLET BY MOUTH EVERY DAY 90 tablet 2 04/28/20 24 025 Discontinued Active Problems Problem Noted Date Diagnosed Date Ear fullness, left 01/03/2025 Assessment & Plan (01/03/2025 7:09 PM CDT): His ear looked good after was cleaned. It also felt quite a bit better. Unfortunately it had to be plugged with Mycolog cream. Bilateral impacted cerumen 05/31/2024 Assessment & Plan (05/31/2024 7:47 PM BOILER FITTER): Both ears have wknh-fl-mxlchzzl cerumen buildup. I recommended and did remove that without difficulty. Needs no intervention. Chronic anticoagulation 08/24/2023 H/O: stroke 03/10/2023 Pre-diabetes 03/10/2023 Mixed hyperlipidemia 03/10/2023 PVD (posterior vitreous detachment), right eye 0 02/03/2023 Assessment & Plan (01/18/2024 1:26 PM CDT): States floaters have resolved, denies new symptoms/FOL Stable exam Monitor RD precautions Assessment & Plan (02/03/2023 11:47 AM CDT): Symptomatic without retinal breaks on scleral depression. Left ear pain 07/13/2022 Assessment & Plan (01/19/2025 9:22 AM CDT): Improved. Assessment & Plan (11/30/2023 12:33 PM CDT): This has resolved completely he notes. Assessment & Plan (11/01/2023 9:33 AM CDT): Mild inflammation noted due to the fungal infection. Should improve within a few days. Assessment & Plan (09/15/2023 8:13 PM CDT): Much improved. Infection is resolved. Assessment & Plan (09/02/2023 7:30 AM CDT): Fungal infection, mild to moderate. Pain improved. Assessment & Plan (08/25/2022 8:27 PM CDT): Improve. He also notes that he is hearing somewhat better. Assessment & Plan (07/27/2022 7:09 PM BOILER FITTER): He still has infection in the left ear and it is somewhat more impacted with fungal debris. This should ultimately clear but I am going to treat more aggressively by filling his ear canal with Mycolog cream. He understands. He will follow-up in about 3 weeks. Assessment & Plan (07/13/2022 11:05 AM BOILER FITTER): He has a fungal infection involving his left ear. Moderate swelling. Things should improve with topical application of nystatin/triamcinolone cream. Follow-up if he has any further problems. 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 The ear was cleaned. I applied alcohol followed by CSF powder. I would like him to continue with the CSF powder as he was using it prior. He was using it about once a week. He has not gotten the prescription filled yet as the pharmacy has not contacted him. We are going to try to facilitate that interaction. I recommended a follow up in about 6 months. Sooner if needed. Assessment & Plan (01/03/2025 7:09 PM CDT): After cleaning his ear of fungal debris I filled the ear canal with Mycolog cream. I recommended otherwise keeping it dry. Follow up with me in about 2 weeks. We are ordering the CSF powder for his left ear. Assessment & Plan (09/01/2024 9:49 AM CDT): There is no evidence of any type of fungal infection. He has not used the powder in about 3 weeks as he ran out of it. I think we will let him go ahead without the powder. I told him to call me if he should have any further problems. Otherwise I will see him as needed. Assessment & Plan (05/31/2024 7:46 PM BOILER FITTER): He has had no problems. I recommended using this CSF powder once a week. He has not enough for about 6 weeks. I recommended that he finish up what he has. Follow up with me in about 3 months. Assessment & Plan (02/29/2024 1:43 PM CDT): So far this seems to be improved. I recommended he continue using CSF powder. I think it is working. Plan is for a follow up in about 3 months. Assessment & Plan (11/30/2023 12:33 PM CDT): The left ear is significantly better with no evidence of infection. I removed some Mycolog cream residue under the microscope and I applied CSF powder. He already has CSF powder and has some questions on how to apply it and used the bulb syringe. I discussed that with him. Recommended using the CSF powder about once a week. I would like to see him in about 3 months to see how things are going. Assessment & Plan (11/01/2023 9:33 AM CDT): His left ear was cleaned and a lot of fungal debris was removed with suction. I applied an abundant amount of nystatin/triamcinolone cream to the left ear. I am having him return in about 2-3 weeks for cleaning again. We will try to get him started on CSF powder at that time. Assessment & Plan (09/15/2023 8:13 PM CDT): This has improved. He asked about possibly seeing me in about 6 months to see if there is any problems and hopefully jackson off any future infections. I told him that is fine. Call me sooner if needed. Assessment & Plan (09/02/2023 7:29 AM CDT): He has a another fungal infection on the left side. I cleaned the left ear and again filled the canal with nystatin/triamcinolone cream. I am recommending keeping the ear dry. I would like to see him in about 2 weeks. Assessment & Plan (02/17/2023 10:30 AM CDT): Things look much better. TM perforation is healed. Under the microscope I examined the ear and applied CSF powder. I recommended keeping his ear dry. Follow up as needed. Assessment & Plan (02/06/2023 1:15 PM CDT): His ear was cleaned again under the microscope. A lot of debris including fungal material was removed using suction. He does have a very tiny perforation involving the drum inferiorly. Active drainage noted. I filled the left ear canal with nystatin with triamcinolone cream. I am also starting him on Bactrim DS because of the middle ear inflammation. The plan is for a follow-up in about 2 weeks. Assessment & Plan (08/25/2022 8:27 PM CDT): This appears to be nearly resolved. Still little bit moist but I do not see any fungal elements. I did remove quite a bit of debris under the microscope and applied CSF powder. I recommended keeping his ear dry. He can follow up if he has any further problems. He understands. Assessment & Plan (07/27/2022 7:08 PM BOILER FITTER): He still has problems with this fungal infection. I told that it generally should clear. I did apply an occluding amount of Mycolog cream to the left ear. I recommended that he keep the ear dry. The plan is for a follow-up in about 3 weeks. He is agreeable with that. Assessment & Plan (07/13/2022 11:04 AM BOILER FITTER): His left ear was examined and cleaned under the microscope using suction. I removed a lot of fungal debris. It is moderately inflamed. After cleaning I applied some nystatin with triamcinolone cream. He noted that his ear felt better and he could hear better. I am going to have him use clotrimazole solution to his left ear. I told him that an infection like this has potential for recurring in if he should have recurring symptoms I told to call. He understands. Otherwise I will see him as needed. Impacted cerumen of left ear 07/13/2022 Assessment & Plan (09/01/2024 9:49 AM CDT): Left ear was cleaned of any excessive wax accumulation. Assessment & Plan (02/29/2024 1:45 PM CDT): I cleaned quite a bit of moist wax and debris from his left ear under the microscope. No fungus noted. I am recommending that he continue with the CSF powder with a follow up in 3 weeks. Assessment & Plan (07/13/2022 11:04 AM BOILER FITTER): His right ear at a moderate amount of cerumen that was removed under the microscope. Otherwise looks fine. 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 Warning Sx RT/RD discussed Nevus of choroid of right eye 06/01/2018 Assessment & Plan (08/30/2018 11:25 AM CDT): Stable continue observation. Consider return to clinic in 6 months Assessment & Plan (06/01/2018 10:28 AM BOILER FITTER): Likely low risk pigmented lesion, right eye, recommend re-evaluation roughly 3-4 months. Should all remains stable we can significantly spread out visits. 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 09/10/2016 08/31/2024 Overview (11/06/2016): Chronic anticoagulation Encounters Date Type Department Care Team Description 01/17/2025 9:30 AM CDT Office Visit [facility] Otolaryngology [address] [place] [address] Eugene Avila MD Left ear pain (Primary Dx); Otomycosis of left ear 01/16/2025 1:45 PM CDT Office Visit [facility] Ophthalmology [address] [place] [address] Kaitlin Serrano MD PhD Nevus of choroid of right eye (Primary Dx) 01/03/2025 8:45 AM CDT Office Visit [facility] Otolaryngology [address] [place] [address] Eugene Avila MD Ear fullness, left (Primary Dx); Otomycosis of left ear from Last 3 Months Medical History Medical History Date Comments Hx Other Medical Atrial fibrilla tion- new onset Hypertension Hypertension Gout gout Hx Other Medical Gout; Comments: [facility] 03/08/2014 - Cancer (HCC) choroidal nevus Heart disease Stroke (HCC) Ear problems Family History Medical History Relation Name Comments Heart failure Father Reggie Congestive Hea rt Failure; Cause of : Congestive Heart Failure Hypertension Father Reggie Arrhythmia Mother Siat Arrhythmias; Arthritis Mother Sita Cancer Mother Sita Cataracts Mother Sita Hypertension Mother Sita Hypertension Other Family History Hypertension; Blindness Paternal Grandmother Relation Name Status Comments Father Reggie (Age 76) Mother Sita Alive Other Family History Paternal Grandmother Social History Tobacco Use Types Packs/Day Years Used Date Smoking Tobacco: Never Smokeless Tobacco: Never Tobacco Cessation:Counseling Given: Not Answered Alcohol Use Standard Drinks/Week Comments No 0 (1 standard drink = 0.6 oz pur e alcohol) Sex and Gender Information Value Date Recorded Sex Assigned at Not on file Legal Sex Male 2:55 AM BOILER FITTER Gender Identity Male 01/16/2020 9:46 AM CDT Sexual Orientation Not on file Obstetrics History Last Filed Vital Signs Vital Sign Reading Time Taken Comments Blood Pressure 154/84 08/31/2024 1:26 PM CDT Pulse 62 08/31/2024 1:26 PM CDT Temperature - - Respiratory Rate 18 01/17/2025 9:34 AM CDT Oxygen Saturation 98% 08/31/2024 1:26 PM CDT Inhaled Oxygen Concentration - - Weight 108.9 kg (240 lb) 01/17/2025 9:34 AM CDT Height 180.3 cm (5' 11) 01/17/2025 9:34 AM CDT Body Mass Index 33.47 01/17/2025 9:34 AM CDT Plan of Treatment Health Maintenance Due Date Last Done Comments Colon Cancer Screening-Colonoscopy 1950 Depression Screening 1950 Fall Risk Assessment 1950 Hepatitis C Screening 1950 DTaP/Tdap/Td Vaccine (1 - Tdap) 1960 Hepatitis B Screening 12/12/1967 Pneumococcal vaccine 65+ (1 of 1 - PCV) 12/12/1999 Zoster Vaccine (1 of 2) 12/12/1999 Well Visit 65+ 2014 Influenza Vaccine (#1) 2025 9, 02/22/2018, 03/15/2017, Additional history exists Procedures Procedure Name Priority Date/Time Associated Diagnosis Comments B-SCAN & A-SCAN 32384 - OD - RIGHT EYE Routine 01/16/2025 2:02 PM CDT Nevus of choroid of right eye OCT, RETINA - OU - BOTH EYES Routine 01/16/2025 1:49 PM CDT Nevus of choroid of right eye FUNDUS PHOTOS/FAF - OU - BOTH EYES Routine 01/16/2025 1:48 PM CDT Nevus of choroid of right eye from Last 3 Months Results * B-Scan & A-Scan [id number] - OD - Right Eye (01/16/2025 2:02 PM CDT) Height 1.99 millimeters CONTINUUM Transverse 8.08 millimeters CONTINUUM Longitude 8.28 millimeters CONTINUUM Clock Hour 11 O'Clock CONTINUUM Anatomical Region Laterality Modality Head Ultrasound Narrative 01/16/2025 2:02 PM CDT 11 O'Clock. 8.28 millimeters. 8.08 millimeters. 1.99 millimeters. Notes No EOE us Kaitlin Serrano MD PhD OPHTH ULTRASOUND Fin al Result * OCT, Retina - OU - Both Eyes (01/16/2025 1:49 PM CDT) Anatomical Region Laterality Modality Head Optical Coherenc e Tomography Narrative 01/16/2025 1:49 PM CDT Right Eye Quality was good. Left Eye Quality was good. Notes OD: stable outer retinal atrophy, mild ERM, stable elevated choroidal lesion with overlying drusen, no subretinal fluid OS: wnl, elevated posterior hyaloid Kaitlin Serrano MD PhD OPHTH TOMOGRAPHY Fin al Result * Fundus Photos/FAF - OU - Both Eyes (01/16/2025 1:48 PM CDT) Anatomical Region Laterality Modality Head Fundus Photograp hy Narrative 01/16/2025 1:48 PM CDT Right Eye Quality was good. Progression has been stable. Left Eye Quality was good. Progression has been stable. Notes right eye (OD): stable superotemporal pigmented choroidal lesion, macula with pigmentary changes left eye (OS): stable, small hyperpigmented CR scar temporal periphery, stable Kaitlin Serrano MD PhD OPHTH PHOTOGRAPHY Fi nal Result from Last 3 Months Insurance MEDICARE MEDICARE [facility]AL [facility] MEDICARE Care Teams Fig Caprifier Relationship Specialty Start Date End Date Magdaleno Mitchell MD [address] [place] [address] PCP - General 09/11/16 Scottie Saeed MD [address] [facility] [address] [place] [address] Referring Physician Ophthalmology 06/01/18
--- OUTSIDE RECORDS SUMMARY | 2025-01-25 02:17 | XMS_ITS | Clinical Summary ---
Author Organization [facility] Address [address] [place] [address] Care Team Providers Care Fisher Troll Line Name Role Phone Unavailable Primary Care Provider Unavailabl e Source Comments [facility],non-owned Affiliates and Associated Physician Practices is amultiple site organization consisting of ambulatory clinics and hospital sitesin [place], [place], [place] and [place]. This disclosure is being madepursuant to the Care Everywhere program and may not contain all information available regarding this patient. Last updated 18.[facility] Active Problems Problem Noted Date Diagnosed Date Stroke-like symptoms 03/26/2022 Social History Tobacco Use Types Packs/Day Years Used Date Smoking Tobacco: Never Assessed Sex and Gender Information Value Date Recorded Sex Assigned at Not on file Legal Sex Male 9:03 AM CDT Gender Identity Not on file Sexual Orientation Not on file Plan of Treatment Health Maintenance Due Date Last Done Comments COLOGUARD (AGES 45-75) - COL ON CA SCREENING 1949 COLON MONITORING 1949 COLONOSCOPY - COLON CA SCREENING 1949 CT COLONOGRAPHY - COLON CA SCREENING 1950 Colorectal Cancer Screening 1949 FIT - COLON CA SCREENING 1949 FLEX SIG - COLON CA SCREENING 1949 LIPID TESTING 1950 MEDICARE AWV 12 MONTHS 1949 HEPATITIS C SCREENING 12/07/1967 DTAP/TDAP/TD VACCINES (1 - Tdap) 1968 PNEUMOCOCCAL VACCINE 50+ (1 of 1 - PCV) 12/12/1999 ZOSTER VACCINE (1 of 2) 12/12/1999 COVID-19 VACCINE ( - 2023-2 5 season) 2024 DEPRESSION SCREENING 06/14/2024 Respiratory Syncytial Virus (RSV) Vaccine Pt: or over 60 yrs (1 - 1-dose 75+ series) 2024 INFLUENZA VACCINE (#1) 2025 HEPATITIS B VACCINE Aged Out No longe r eligible based on patient's age to complete this topic HIB VACCINE Aged Out No longer eligi ble based on patient's age to complete this topic HPV VACCINE Aged Out No longer eligi ble based on patient's age to complete this topic MENINGOCOCCAL (Group B) VACC INE SHARED DECISION-MAKING Aged Out No longer eligibl e based on patient's age to complete this topic MENINGOCOCCAL GROUPS A/C/Y/W VACCINE Aged Out No longer eligible b ased on patient's age to complete this topic Insurance MEDICARE FOR[facility]LY [facility] [place] Address: [address] [place] [address]
--- NOTE | 2025-01-25 08:58 | WPDANESEPPF ---
Anes - Initial Pre Proc Eval Procedure: Operation Date: 01/25/25 13:00 Proposed Procedures p Colonoscopy - Ar Day MD Date/Time: 01/25/25 08:58 Surgeon: Ar Day MD Pre Op Diagnosis: Other fecal abnormalities Patient Data Age: 74 Gender: M Height: 1.8 m Weight: 109 kg Allergies Allergy/AdvReac Type Severity Reaction Status Date / Time lisinopril Allergy Intermediate increased Verified 01/25/25 12:05 heart rate Penicillins Allergy Mild Hives Verified 01/25/25 12:05 telmisartan Allergy Unknown heart Verified 01/25/25 12:05 flutter frequency Home Medications ?Medication ?Instructions ?Recorded ?Confirmed ?Type rivaroxaban 20 mg tablet (Xarelto) 20 mg PO DAILY 08/01/19 01/25/25 History glucosamine sulf dipot 1 cap PO EVERY OTHER DAY 03/16/22 01/25/25 History chlr,msm,chond 550 mg-C 30 mg-rayshawn 1 mg capsule (Glucosamine Chondroitin) multivitamin 1 tablet PO EVERY OTHER DAY 03/16/22 01/25/25 History valsartan 320 mg tablet 320 mg PO DAILY #90 tabs 11/14/23 01/25/25 Rx allopurinol 300 mg tablet 300 mg PO DAILY #90 tabs 07/19/24 01/25/25 Rx diltiazem HCl 300 mg 300 mg PO DAILY #90 caps 07/19/24 01/25/25 Rx capsule,extended release 24 hr nadolol 80 mg tablet (Corgard) 80 mg PO DAILY #90 tabs 07/25/24 01/25/25 Rx triamterene 37.5 1 cap PO DAILY #90 caps 07/25/24 01/25/25 Rx mg-hydrochlorothiazide 25 mg capsule atorvastatin 40 mg tablet See Rx Instructions .Route 10/16/24 01/25/25 Rx .COMPLEX #90 tabs Patient hx anesthesia problems: none Family hx anesthesia problems: none Results Review: All pre-operative results and documents have been reviewed as part of the pre-operative evaluation. [facility] Past Medical History Medical History Stroke Acute CVA (cerebrovascular accident) Hydrocele Drained this past [place]. Gout, unspecified Arthritis Obesity Essential (primary) hypertension Paroxysmal atrial fibrillation Pure hypercholesterolemia Surgical History Surgical History Attapulgus teeth extracted Family History Family History Sibling Hypertension Patient's sister is in good health Mother , pancreatic cancer Family history of malignant neoplasm of breast in first degree relative Family history of colonic diverticulitis Father Family history of congestive heart failure, Onset Age: 76 Patient's father is Sibling , Glioblastoma No problems noted. Social History Social History Social History: The patient is single and has no children. 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 His brother is the power environmental attorney. The patient is a lifelong nonsmoker. He does not use any alcohol marijuana or illicit drugs. Code status is full code Smoking status: Never smoker Second hand tobacco smoke exposure: No Alcohol intake: current Drinks per week: 0 Alcohol use details: Very Rare Substance use: never Substance use type: does not use Do You Feel Safe in your Home?: Yes Lack of Transportation: No Lack of Food: Never True Current Housing: I Have Housing Concerned About Future Housing: No Difficulty Paying Gas/Electric Bills: No Difficulty Paying for Meds: No Currently Unemployed: No Education: Bachelor's Degree Difficulty w/ Childcare or Family Care: No Living arrangements: alone Occupation/Education: retired 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 Gender identity (if verbalized by the patient): Male Spiritual care concerns: No Anes - Eval Final PreProcedure Day of Procedure 01/25/25 08:58 Patient weight: obese Heart: regular rate and rhythm Lungs: clear to auscultation Airway: Mallampati scale class III Neurological: alert and oriented Last oral intake: >/= 8 hours ASA classification: III Emergent: no Anesthetic plan: proceed Anesthesia type and monitoring: general GIVS and standard monitoring Results Review: All pre-operative results and documents have been reviewed as part of the pre-operative evaluation. Informed Consent: The patient's anesthetic plan and its attendant risks and benefits were discussed with the patient/family/POA. Questions were solicited and answers provided to the satisfaction of the patient/family/POA.
[2025-01-25 12:07] VITALS: BP 179/95; PULSE 70; RESP 18; TEMP 36.6; O2SAT 97
[2025-01-25] MEDS: LACTATED RINGERS 1,000 ML 150 ML IV CONT (12:14)
--- NOTE | 2025-01-25 14:09 | P.HP_ITS ---
History of Present Illness History of Present Illness Consent: Risks, benefits, and alternatives have been discussed and questions answered. Patient agrees to proceed with procedure. Chief complaint: Other fecal abnormalities Narrative: Kenji Hernandez is a 74 year old male here for first colonoscopy, had + cologuard Review of Systems Review of Systems: All systems reviewed & are unremarkable except as noted in HPI and below PMFSH Past Medical History Medical History (Updated 01/25/25 @ 14:14 by Ar Day MD) Positive colorectal cancer screening using Cologuard test Stroke Acute CVA (cerebrovascular accident) Hydrocele Drained this past Wednesday. Gout, unspecified Arthritis Obesity Essential (primary) hypertension Paroxysmal atrial fibrillation Pure hypercholesterolemia Surgical History Surgical History Mclean teeth extracted Family History Family History Sibling Hypertension Patient's sister is in good health Mother , pancreatic cancer Family history of malignant neoplasm of breast in first degree relative Family history of colonic diverticulitis Father Family history of congestive heart failure, Onset Age: 76 Patient's father is Sibling , Glioblastoma No problems noted. Social History Social History Social History: The patient is single and has no children. He is retired from the [employer]. His brother is the power software engineer mobile. The patient is a lifelong nonsmoker. He does not use any alcohol marijuana or illicit drugs. Code status is full code Smoking status: Never smoker Second hand tobacco smoke exposure: No Alcohol intake: current Drinks per week: 0 Alcohol use details: Very Rare Substance use: never Substance use type: does not use Do You Feel Safe in your Home?: Yes Lack of Transportation: No Lack of Food: Never True Current Housing: I Have Housing Concerned About Future Housing: No Difficulty Paying Gas/Electric Bills: No Difficulty Paying for Meds: No Currently Unemployed: No Education: Bachelor's Degree Difficulty w/ Childcare or Family Care: No Living arrangements: alone Occupation/Education: retired 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 Gender identity (if verbalized by the patient): Male Spiritual care concerns: No Meds Home Medications and Allergies Home Medications ?Medication ?Instructions ?Recorded ?Confirmed ?Type rivaroxaban 20 mg tablet (Xarelto) 20 mg PO DAILY 08/01/19 01/25/25 History glucosamine sulf dipot 1 cap PO EVERY OTHER DAY 03/16/22 01/25/25 History chlr,msm,chond 550 mg-C 30 mg-rayshawn 1 mg capsule (Glucosamine Chondroitin) multivitamin 1 tablet PO EVERY OTHER DAY 03/16/22 01/25/25 History valsartan 320 mg tablet 320 mg PO DAILY #90 tabs 11/14/23 01/25/25 Rx allopurinol 300 mg tablet 300 mg PO DAILY #90 tabs 07/19/24 01/25/25 Rx diltiazem HCl 300 mg 300 mg PO DAILY #90 caps 07/19/24 01/25/25 Rx capsule,extended release 24 hr nadolol 80 mg tablet (Corgard) 80 mg PO DAILY #90 tabs 07/25/24 01/25/25 Rx triamterene 37.5 1 cap PO DAILY #90 caps 07/25/24 01/25/25 Rx mg-hydrochlorothiazide 25 mg capsule atorvastatin 40 mg tablet See Rx Instructions .Route 10/16/24 01/25/25 Rx .COMPLEX #90 tabs Allergies Allergy/AdvReac Type Severity Reaction Status Date / Time lisinopril Allergy Intermediate increased Verified 01/25/25 12:05 heart rate Penicillins Allergy Mild Hives Verified 01/25/25 12:05 telmisartan Allergy Unknown heart Verified 01/25/25 12:05 flutter frequency Vital Signs Vital Signs - 24 hr 01/25/25 12:07 Temperature 97.8 F Pulse Rate 70 Respiratory Rate 18 Blood Pressure 179/95 H Pulse Oximetry 97 Oxygen Delivery Room Air Exam Const: General: comfortable and no acute distress HENMT: Face/Nose/Sinus: Normal nares present Eyes: General: appearance normal, both eyes and all related structures Neck: Neck: no JVD Resp: Auscultation: clear to auscultation bilaterally Cardio: Rate: regular rate Rhythm: regular rhythm GI: Inspection: non-distended GI Palp: Yes Soft to palpation Skin: General skin exam: normal color Neuro: General: gait normal Speech: normal speech Extrem: General: normal to inspection Psych: Mental Status: mental status grossly normal Assessment and Plan Assessment and plan (1) Positive colorectal cancer screening using Cologuard test: Code(s): R19.5 - Other fecal abnormalities Status: Acute Assessment and Plan: colonoscopy
[2025-01-25 14:36] VITALS: BP 144/75; PULSE 66; RESP 20; O2SAT 97
[2025-01-25 14:46] VITALS: BP 165/92; PULSE 70; RESP 20; O2SAT 97
[2025-01-25 14:56] VITALS: BP 165/92; PULSE 68; RESP 20; O2SAT 93
--- NOTE | 2025-01-25 15:06 | SUR.PHASEII ---
Pt did not want to speak with MD before discharge..
== END 2025-01-25 15:06 | disposition home or self-care (01) ==
PROVIDERS: PCP Internal Medicine; Referring Provider Internal Medicine; Visit Provider Internal Medicine Gastroenterology
PROC: 0DJD8ZZ Inspection of Lower Intestinal Tract, Via Natural or Artificial Opening Endoscopic (ICD-10-PCS; CPT 45378; principal; 2025-01-25 13:00)
DX: K64.8 Other hemorrhoids (principal); K57.30 Diverticulosis of large intestine without perforation or abscess without bleeding; I10 Essential (primary) hypertension; I48.0 Paroxysmal atrial fibrillation; E78.00 Pure hypercholesterolemia, unspecified; I63.9 Cerebral infarction, unspecified; M19.90 Unspecified osteoarthritis, unspecified site; E66.9 Obesity, unspecified; Z68.34 Body mass index [BMI] 34.0-34.9, adult; Z79.01 Long term (current) use of anticoagulants; Z98.890 Other specified postprocedural states; Z87.438 Personal history of other diseases of male genital organs; Z86.73 Personal history of transient ischemic attack (TIA), and cerebral infarction without residual deficits; Z80.0 Family history of malignant neoplasm of digestive organs; Z80.3 Family history of malignant neoplasm of breast; Z80.8 Family history of malignant neoplasm of other organs or systems; Z82.49 Family history of ischemic heart disease and other diseases of the circulatory system
CPT/HCPCS: 45378; J2003; J2704; J7120